=== PATIENT | female | born 1970 | race Hispanic/Latino ===

== ENCOUNTER 2018-11-18 17:10 | Emergency (ER) | payer OTHER ==
[~2018-11-18] VITALS: Ht 154.9 cm; Wt 94.3 kg
--- OUTSIDE RECORDS SUMMARY | 2018-11-18 17:14 | XMS REPORT | Continuity of Care Document ---
Author Author [employer] Address Unknown Phone Unavailable Care Team Providers Care [employer] Name Role Phone Socket Mobile Information Endocyte Unavailable Unavailable Problems Problem Status Onset Date Classification Date Reported Comments Source Other organ or system involvement in systemic lupus erythematosus Active Problem 11/07/2018 Catrina Najam Chronic insomnia Active Problem 11/07/2018 Catrina Najam Other chronic pain Active Problem 11/07/2018 Catrina Najam Systemic lupus erythematosus Active Problem 11/07/2018 Catrina Najam Pain in joint, multiple sites Active Problem 11/07/2018 Catrina Najam Chronic pain disorder Active Problem 11/07/2018 Catrina Najam High risk medication use Active Problem 11/07/2018 Catrina Najam Right carpal tunnel syndrome Active Problem 11/07/2018 Catrina Najam Pain, joint, multiple sites Active Diagnosis 09/08/2018 Catrina Najam Counseling NOS Active Diagnosis 09/08/2018 Catrina Najam Primary insomnia Active Problem 11/07/2018 Catrina Najam Lumbago due to displacement of intervertebral disc Active Problem 11/07/2018 Catrina Najam Gastric ulcer, unspecified as acute or chronic, without hemorrhage or perforation Active Problem 11/07/2018 Catrina Najam Gastritis and duodenitis Active Problem 11/07/2018 Catrina Najam Acute bilateral low back pain with sciatica, sciatica laterality unspecified Active Problem 11/07/2018 Catrina Najam Rash Active Diagnosis 09/08/2018 Catrina Najam Unspecified exophthalmos Active Diagnosis 03/12/2014 Catrina Najam Pain in or around eye Active Diagnosis 03/12/2014 Catrina Najam Pain in joint, hand Active Diagnosis 03/12/2014 Catrina Najam Effusion of hand joint Active Diagnosis 03/12/2014 Catrina Najam Chronic pain syndrome Active Diagnosis 03/12/2014 Catrina Najam myalgia and myositis Active Diagnosis 09/23/2014 Catrina Najam monitorring of highrisk meds Active Diagnosis 09/23/2014 Catrina Mcnally Pain in joint, lower leg Active Diagnosis 09/23/2014 Catrina Mcnally Proteinuria Active Diagnosis 09/23/2014 Catrina Mcnally Counseling NOS Active Diagnosis 09/23/2014 Catrina Mcnally Dysuria Active Diagnosis 03/11/2015 Catrina Mcnally Systemic lupus erythematosus Active Diagnosis 03/11/2015 Catrina Mcnally Chronic pain Active Diagnosis 03/11/2015 Catrina Mcnally Tobacco dependence Active Diagnosis 03/11/2015 Catrina Mcnally Left shoulder pain Active Diagnosis 12/08/2015 Catrina Mcnally Frequent UTI Active Diagnosis 09/08/2018 Catrina Mcnally Medications Medication Details Route Status Patient Instructions Ordering Provider Order Date Source Hydroxychloroquine Sulfate 2 tabs Orally Active 200 MG Orally Once a day [facility] 03/21/2019 Catrina Mcnally Morphine Sulfate 1 tablet as needed Orally Active 15 MG Orally every 8 hrs prn [facility] 10/22/2018 Catrina Mcnally Mycophenolate Mofetil 1 tab(s) Orally Active 500 MG Orally Twice a day [facility] 09/07/2018 Catrina Mcnally Cyclobenzaprine HCl 1 tablet as needed Orally Active 10 mg Orally bedtime [facility] 01/31/2018 Catrina Mcnally Triamcinolone Acetonide 1 application to affected area Externally Active 0.1 % Externally Twice a day [facility] 01/28/2018 Catrina Mcnally Nabumetone 1 tab(s) with food as needed Orally Active 750 MG Orally bid [facility] 01/22/2018 Catrina Mcnally Gabapentin 1 capsule Orally Active 300 MG Orally Three times a day [facility] 12/16/2017 Catrina Mcnally Nalfon 1 tab(s) with food as needed Orally Active 400 MG Orally Three times a day [facility] 11/25/2017 Catrina Mcnally Benlysta 1000mg Intravenous Active 400 MG Intravenous Once every 4 weeks [facility] 10/09/2017 Catrina Mcnally Hydroxychloroquine Sulfate 2 tabs Orally Active 200 MG Orally Once a day [facility] 09/09/2017 Catrina Mcnally Macrobid 1 capsule with food Orally Active 100 MG Orally every 12 hrs [facility] 08/05/2017 Catrina Mcnally Cyclobenzaprine HCl 1 tablet as needed Orally Active 10 mg Orally bedtime [facility] 03/13/2017 Catrina Mcnally Benlysta 10mg/kg Intravenous Active 120 MG Intravenous Once every 4 weeks [facility] 01/26/2017 Catrina Mcnally Hydroxychloroquine Sulfate 2 tabs Orally Active 200 MG Orally Once a day [facility] 12/02/2016 Catrina Mcnally Hydroxychloroquine Sulfate 2 tabs Orally Active 200 MG Orally Once a day [facility] 12/02/2016 Catrinaxena Mcnally Plaquenil 2 tabs Orally Active 200 MG Orally Once a day [facility] 11/21/2016 Catrina Mcnally Naproxen 1 tablet as needed Orally Active 500 MG Orally every 12 hrs prn with food [facility] 09/17/2016 Catrina Mcnally Tramadol HCl 1 tablet as needed Orally Active 50 MG Orally bid prn with food [facility] 08/08/2016 Catrina Mcnally Infusion Supllies One set IV Active IV Every 4 weeks [facility] 07/30/2016 Catrina Mcnally Tramadol HCl 2 tablet as needed Orally Active 50 MG Orally bid prn for pain [facility] 07/24/2016 Catrina Mcnally Cyclobenzaprine HCl 1 tablet as needed Orally Active 10 MG Orally bedtime prn [facility] 07/24/2016 Catrina Mcnally Gabapentin 1 capsule Orally Active 300 MG Orally bid [facility] 07/16/2016 Catrina Mcnally Gabapentin 1 capsule Orally Active 300 MG Orally bid [facility] 07/16/2016 Catrina Mcnally Plaquenil 2 tablets with food or milk Orally Active 200 MG Orally Once a day [facility] 12/20/2015 Catrina Mcnally Tramadol HCl 1 tab(s) as needed Orally Active 50 MG Orally Three times a day [facility] 12/20/2015 Catrina Mcnally Cyclobenzaprine HCl TAKE 1 TABLET at bedtime Orally Active 10 Orally Once a day [facility] 12/20/2015 Catrina Mcnally Tramadol HCl 1 tablet Orally Active 50 MG Orally Three times a day [facility] 10/26/2015 Catrina Mcnally Imuran as directed Orally Active 50 MG Orally one BID for lupus treatment [facility] 09/06/2015 Catrina Mcnally Plaquenil 2 tablets with food or milk Orally Active 200 MG Orally Once a day [facility] 09/06/2015 Catrina Mcnally Cipro 1 tablet Orally Active 500 MG Orally Twice a day [facility] 03/13/2015 Catrina Mcnally Savella 1 tablet Orally Active 50 MG Orally Twice a day [facility] 2015 Catrina Mcnally Hydrocodone-Acetaminophen 1 tablet as needed Orally Active 5- 325 MG Orally every 8 hrs [facility] 09/22/2014 Catrina Mcnally Plaquenil 2 tablets with food or milk Orally Active 200 MG Orally Once a day [facility] 09/16/2014 Catrina Mcnally Tramadol HCl 1 tablet as needed Orally Active 50 MG Orally every 6 hrs [facility] 09/16/2014 Catrina Mcnally Bactrim DS 1 tablet Orally Active 800-160 MG Orally twice daily [facility] 08/08/2014 Catrina Mcnally Imuran as directed Orally Active 50 MG Orally one BID for lupus treatment [facility] 08/02/2014 Catrina Mcnally Cyclobenzaprine HCl 1 tablet Orally Active 10 mg Orally bedtime [facility] 06/09/2014 Catrina Mcnally Triamcinolone Acetonide 1 application to affected area Externally Active 0.1 % Externally Twice a day [facility] 10/12/2013 Catrinaxena Mcnally Triamcinolone Acetonide 1 application to affected area Externally Active 0.1 % Externally Twice a day [facility] 10/12/2013 Catrina Mcnally HydrOXYzine HCl 1/2 tablet Orally Active 25 MG Orally at bedtime for itching [facility] 10/12/2013 Catrina Mcnally Cyclobenzaprine HCl 1 tablet as needed Orally Active 10 MG Orally bedtime prn Najam Catrina Najam Benlysta as directed Intravenous Active 120 MG Intravenous Najam Catrina [facility] Benlysta INFUSE 920MG IV AT WEEK 0, 2 AND 4 THEN EVERY 4 WEEKS. NA Active 400 MG Najam Catrina Najam Tramadol HCl 1 tablet as needed Orally Active 50 MG Orally bid prn for pain Najam Catrina Najam Benlysta as directed Intravenous Active 120 MG Intravenous Najam Catrina Najam Morphine Sulfate 1 tablet as needed Orally Active 15 MG Orally every 8 hrs prn N[facility]am Catrina Najam Cyclobenzaprine HCl 1 tablet as needed Orally Active 10 mg Orally bedtime [facility] Catrina Najam Tramadol HCl 1 tablet as needed Orally Active 50 MG Orally bid prn for pain N[facility] Catrina Mcnally Morphine Sulfate 1 tablet as needed Orally Active 15 MG Orally every 8 hrs prn [facility] Catrina Namelinda Hydroxychloroquine Sulfate 2 tabs Orally Active 200 MG Orally Once a day [facility] Catrina Namelinda Triamcinolone Acetonide 1 application to affected area Externally Active 0.1 % Externally Twice a day [facility] Catrina Namelinda Nalfon 1 tab(s) with food as needed Orally Active 400 MG Orally Three times a day [facility] Catrina Namelinda Plaquenil 1 tablet with food or milk Orally Active 200 MG Orally Once a day [facility] Catrina Namelinda Cyclobenzaprine HCl 1 tablet Orally Active 10 mg Orally bedtime [facility] Catrina Namelinda Imuran as directed Orally Active 50 MG Orally one BID for lupus treatment [place] Catrina Namelinda Cyclobenzaprine HCl TAKE 1 TABLET BY MOUTH AT BEDTIME NA Active 10 [facility] Catrina Namelinda Gabapentin 1 capsule Orally Active 300 MG Orally Three times a day U[facility] Mcnally Allergies, Adverse Reactions, Alerts Substance Category Reaction Severity Reaction type Status Date Reported Comments Source N.K.D.A. Adverse Reaction Info Not Available Adverse Reaction Active 09/07/2018 Catrina Mcnally Immunizations No Data Provided for This Section Results No Data Provided for This Section Pathology Reports No Data Provided for This Section Diagnostic Reports No Data Provided for This Section Consultation Notes No Data Provided for This Section Discharge Summaries No Data Provided for This Section History and Physicals No Data Provided for This Section Vital Signs Vital Sign Value Date Comments Source Height 65 09/17/2018 Catrina Najam Diastolic (mm Hg) 70 09/17/2018 Catrina Najam Systolic (mm Hg) 114 09/17/2018 Catrina Najam Weight 212 09/17/2018 Catrina Najam Height 65 09/07/2018 Catrina Najam Diastolic (mm Hg) 78 09/07/2018 Catrina Najam Systolic (mm Hg) 133 09/07/2018 Catrina Najam Weight 207 09/07/2018 Catrina Najam Weight 233 07/02/2018 Catrina Najam Height 65 07/02/2018 Catrina Najam Height 65 06/04/2018 Catrina Najam Diastolic (mm Hg) 84 06/04/2018 Catrina Najam Systolic (mm Hg) 127 06/04/2018 Catrina Najam Weight 215 06/04/2018 Catrina Najam Height 65 03/13/2018 Catrina Najam Diastolic (mm Hg) 84 03/13/2018 Catrina Najam Systolic (mm Hg) 131 03/13/2018 Catrina Najam Weight 219 03/13/2018 Catrina Najam Height 65 01/28/2018 Catrina Najam Diastolic (mm Hg) 72 01/28/2018 Catrina Najam Systolic (mm Hg) 108 01/28/2018 Catrina Najam Weight 217.2 01/28/2018 Catrina Najam Height 65 01/16/2018 Catrina Najam Diastolic (mm Hg) 74 01/16/2018 Catrina Najam Systolic (mm Hg) 118 01/16/2018 Catrina Najam Weight 213 01/16/2018 Catrina Najam Height 65 01/13/2018 Catrina Najam Diastolic (mm Hg) 85 01/13/2018 Catrina Najam Systolic (mm Hg) 127 01/13/2018 Catrina Najam Weight 213.6 01/13/2018 Catrina Najam Weight 216 12/19/2017 Catrina Najam Diastolic (mm Hg) 78 12/19/2017 Catrina Najam Systolic (mm Hg) 115 12/19/2017 Catrina Najam Height 65 11/25/2017 Catrina Najam Diastolic (mm Hg) 79 11/25/2017 Catrina Najam Systolic (mm Hg) 118 11/25/2017 Catrina Najam Weight 217.1 11/25/2017 Catrina Najam Height 65 11/21/2017 Catrina Najam Diastolic (mm Hg) 90 11/21/2017 Catrina Najam Systolic (mm Hg) 142 11/21/2017 Catrina Najam Weight 218 11/21/2017 Catrina Najam Height 65 10/03/2017 Catrina Najam Diastolic (mm Hg) 78 10/03/2017 Catrina Najam Systolic (mm Hg) 126 10/03/2017 Catrina Najam Weight 220 10/03/2017 Catrina Najam Height 65 09/05/2017 Catrina Najam Diastolic (mm Hg) 70 09/05/2017 Catrina Najam Systolic (mm Hg) 111 09/05/2017 Catrina Najam Weight 211 09/05/2017 Catrina Najam Height 65 08/08/2017 Catrina Najam Diastolic (mm Hg) 82 08/08/2017 Catrina Najam Systolic (mm Hg) 128 08/08/2017 Catrina Najam Weight 212 08/08/2017 Catrina Najam Height 65 08/04/2017 Catrina Najam Diastolic (mm Hg) 103 08/04/2017 Catrina Najam Systolic (mm Hg) 142 08/04/2017 Catrina Najam Weight 207.6 08/04/2017 Catrina Najam Height 65 05/29/2017 Catrina Najam Diastolic (mm Hg) 93 05/29/2017 Catrina Najam Systolic (mm Hg) 148 05/29/2017 Catrina Najam Weight 212 05/29/2017 Catrina Najam Height 65 04/25/2017 Catrina Najam Diastolic (mm Hg) 100 04/25/2017 Catrina Najam Systolic (mm Hg) 151 04/25/2017 Catrina Najam Weight 220 04/25/2017 Catrina Najam Height 65 03/28/2017 Catrina Najam Diastolic (mm Hg) 100 03/28/2017 Catrina Najam Systolic (mm Hg) 146 03/28/2017 Catrina Najam Weight 217 03/28/2017 Catrina Najam Height 65 03/13/2017 Catrina Najam Diastolic (mm Hg) 76 03/13/2017 Catrina Najam Systolic (mm Hg) 118 03/13/2017 Catrina Najam Weight 214 03/13/2017 Catrina Najam Height 65 02/20/2017 Catrina Najam Diastolic (mm Hg) 82 02/20/2017 Catrina Najam Systolic (mm Hg) 125 02/20/2017 Catrina Najam Weight 219 02/20/2017 Catrina Najam Height 65 01/17/2017 Catrina Najam Diastolic (mm Hg) 77 01/17/2017 Catrina Najam Systolic (mm Hg) 113 01/17/2017 Catrina Najam Weight 220 01/17/2017 Catrina Najam Height 65 12/19/2016 Catrina Najam Diastolic (mm Hg) 84 12/19/2016 Catrina Najam Systolic (mm Hg) 107 12/19/2016 Catrina Najam Weight 207 12/19/2016 Catrina Najam Height 65 12/02/2016 Catrina Najam Diastolic (mm Hg) 92 12/02/2016 Catrina Najam Systolic (mm Hg) 147 12/02/2016 Catrina Najam Weight 208 12/02/2016 Catrina Najam Height 65 09/17/2016 Catrina Najam Diastolic (mm Hg) 93 09/17/2016 Catrina Najam Systolic (mm Hg) 134 09/17/2016 Catrina Najam Weight 207 09/17/2016 Catrina Najam Height 65 08/29/2016 Catrina Najam Diastolic (mm Hg) 84 08/29/2016 Catrina Najam Systolic (mm Hg) 123 08/29/2016 Catrina Najam Weight 202 08/29/2016 Catrina Najam Height 65 08/09/2016 Catrina Najam Diastolic (mm Hg) 84 08/09/2016 Catrina Najam Systolic (mm Hg) 117 08/09/2016 Catrina Najam Weight 202 08/09/2016 Catrina Najam Height 65 08/01/2016 Catrina Najam Diastolic (mm Hg) 81 08/01/2016 Catrina Najam Systolic (mm Hg) 133 08/01/2016 Catrina Najam Weight 204 08/01/2016 Catrina Najam Height 65 07/24/2016 Catrina Najam Diastolic (mm Hg) 86 07/24/2016 Catrina Najam Systolic (mm Hg) 122 07/24/2016 Catrina Najam Weight 204 07/24/2016 Catrina Najam Height 65 12/07/2015 Catrina Najam Diastolic (mm Hg) 76 12/07/2015 Catrina Najam Systolic (mm Hg) 115 12/07/2015 Catrina Najam Weight 206.8 12/07/2015 Catrina Najam Height 65 10/30/2015 Catrina Najam Diastolic (mm Hg) 82 10/30/2015 Catrina Najam Systolic (mm Hg) 125 10/30/2015 Catrina Najam Weight 206.4 10/30/2015 Catrina Najam Height 65 05/18/2015 Catrina Najam Diastolic (mm Hg) 84 05/18/2015 Catrina Najam Systolic (mm Hg) 122 05/18/2015 Catrina Najam Weight 207 05/18/2015 Catrina Najam Height 65 03/09/2015 Catrina Najam Diastolic (mm Hg) 90 03/09/2015 Catrina Najam Systolic (mm Hg) 139 03/09/2015 Catrina Najam Weight 202.6 03/09/2015 Catrina Najam Height 65 02/23/2015 Catrina Najam Diastolic (mm Hg) 98 02/23/2015 Catrina Najam Systolic (mm Hg) 134 02/23/2015 Catrina Najam Weight 204 02/23/2015 Catrina Najam Height 65 09/21/2014 Catrina Najam Diastolic (mm Hg) 81 09/21/2014 Catrina Najam Systolic (mm Hg) 135 09/21/2014 Catrina Najam Weight 196.4 09/21/2014 Catrina Najam Height 65 08/02/2014 Catrina Najam Diastolic (mm Hg) 83 08/02/2014 Catrina Najam Systolic (mm Hg) 150 08/02/2014 Catrina Najam Weight 195.4 08/02/2014 Catrina Najam Height 65 04/21/2014 Catrina Najam Diastolic (mm Hg) 86 04/21/2014 Catrina Najam Systolic (mm Hg) 125 04/21/2014 Catrina Najam Weight 194 04/21/2014 Catrina Najam Height 65 2014 Catrina Najam Diastolic (mm Hg) 93 2014 Catrina Najam Systolic (mm Hg) 136 2014 Catrina Najam Weight 191 2014 Catrina Najam Height 65 02/24/2014 Catrina Najam Diastolic (mm Hg) 86 02/24/2014 Catrina Najam Systolic (mm Hg) 131 02/24/2014 Catrina Najam Weight 179 02/24/2014 Catrina Najam Height 65 01/18/2014 Catrina Najam Diastolic (mm Hg) 85 01/18/2014 Catrina Najam Systolic (mm Hg) 130 01/18/2014 Catrina Najam Weight 190 01/18/2014 Catrina Najam Encounters Location Location Details Encounter Type Encounter Number Reason For Visit Attending Provider ADM Date DC Date Status Source [facility] [id number] 01/18/2014 01/18/2014 [facility] [place] [id number] 01/18/2014 01/18/2014 [facility] [place] [id number] 01/18/2014 01/18/2014 [facility] [place] [id number] 01/18/2014 01/18/2014 [facility] [place] [id number] 01/18/2014 01/18/2014 [facility] [place] [id number] 01/18/2014 01/18/2014 [facility] [place] [id number] 01/18/2014 01/18/2014 [facility] [place] [id number] 01/18/2014 01/18/2014 [facility] [place] [id number] 01/18/2014 01/18/2014 [facility] [place] [id number] 01/18/2014 01/18/2014 [facility] [place] [id number] 01/18/2014 01/18/2014 [facility] [place] [id number] 01/18/2014 01/18/2014 Catrina Najam [facility] [id number] 01/18/2014 01/18/2014 Catrina Najam [facility] [id number] 01/18/2014 01/18/2014 Catrina Najam [facility] [id number] 01/18/2014 01/18/2014 Catrina Najam [facility] [id number] 01/18/2014 01/18/2014 Catrina Najam [facility] [id number] 01/18/2014 01/18/2014 Catrina Najam [facility] [id number] 01/18/2014 01/18/2014 Catrina Najam [facility] [id number] 01/18/2014 01/18/2014 Catrina Najam [facility] [id number] 01/18/2014 01/18/2014 Catrina Najam [facility] [id number] 01/18/2014 01/18/2014 Catrina Najam [facility] [id number] 01/18/2014 01/18/2014 Catrina Najam [facility] [id number] 01/18/2014 01/18/2014 Catrina Najam [facility] [id number] 01/18/2014 01/18/2014 [facility] [id number] 01/18/2014 01/18/2014 [facility] [place] [id number] 01/18/2014 01/18/2014 [facility] [place] [id number] 01/18/2014 01/18/2014 [facility] [place] [id number] 01/18/2014 01/18/2014 [facility] [id number] 02/24/2014 02/24/2014 [facility] [place] [id number] 02/24/2014 02/24/2014 [facility] [place] [id number] 02/24/2014 02/24/2014 [facility] [id number] 02/24/2014 02/24/2014 [facility] [place] [id number] 02/24/2014 02/24/2014 [facility] [id number] 02/24/2014 02/24/2014 [facility] [id number] 02/24/2014 02/24/2014 [facility] [place] [id number] 02/24/2014 02/24/2014 [facility] [id number] 02/24/2014 02/24/2014 [facility] [place] [id number] 02/24/2014 02/24/2014 [facility] [id number] 02/24/2014 02/24/2014 [facility] [id number] 02/24/2014 02/24/2014 [facility] [id number] 02/24/2014 02/24/2014 [facility] [place] [id number] 02/24/2014 02/24/2014 [facility] [id number] 02/24/2014 02/24/2014 [facility] [place] [id number] 02/24/2014 02/24/2014 [facility] [id number] 02/24/2014 02/24/2014 [facility] [id number] 02/24/2014 02/24/2014 [facility] [id number] 02/24/2014 02/24/2014 [facility] [id number] 02/24/2014 02/24/2014 [facility] [place] [id number] 02/24/2014 02/24/2014 [facility] [place] [id number] 02/24/2014 02/24/2014 [facility] [place] [id number] 02/24/2014 02/24/2014 [facility] [place] [id number] 02/24/2014 02/24/2014 [facility] [place] [id number] 02/24/2014 02/24/2014 [facility] [place] [id number] 02/24/2014 02/24/2014 [facility] [place] [id number] 02/24/2014 02/24/2014 [facility] Follow up [id number] 2014 2014 [facility] Follow up [id number] 2014 2014 [facility] Follow [id number] 2014 2014 [facility] Follow up [id number] 2014 2014 [facility] Follow up [id number] 2014 2014 [facility] Follow up [id number] 2014 2014 [facility] Follow up [id number] 2014 2014 [facility] Follow up [id number] 2014 2014 [facility] Follow up [id number] 2014 2014 [facility] Follow up [id number] 2014 2014 [facility] Follow up [id number] 2014 2014 [facility] Follow up [id number] 2014 2014 [facility] Follow up [id number] 2014 2014 [facility] Follow up [id number] 2014 2014 [facility] Follow up [id number] 2014 2014 [facility] Follow up [id number] 2014 2014 [facility] Follow up [id number] 2014 2014 [facility] Follow up [id number] 2014 2014 [facility] Follow up [id number] 2014 2014 [facility] Follow up [id number] 2014 2014 [facility] Follow up [id number] 2014 2014 [facility] Follow up [id number] 2014 2014 [facility] Follow up [id number] 2014 2014 [facility] Follow up [id number] 2014 2014 [facility] Follow up [id number] 2014 2014 [facility] Follow up [id number] 2014 2014 [facility] letter needed [id number] 2014 2014 [facility] letter needed [id number] 2014 2014 [facility] letter needed [id number] 2014 2014 [facility] letter needed [id number] 2014 2014 [facility] letter needed [id number] 2014 2014 [facility] letter needed [id number] 2014 2014 [facility] letter needed [id number] 2014 2014 [facility] letter needed [id number] 2014 2014 [facility] letter needed [id number] 2014 2014 [facility] letter needed [id number] 2014 2014 [facility] letter needed [id number] 2014 2014 [facility] letter needed [id number] 2014 2014 [facility] letter needed [id number] 2014 2014 [facility] letter needed [id number] 2014 2014 [facility] letter needed [id number] 2014 2014 [facility] letter needed [id number] 2014 2014 [facility] letter needed [id number] 2014 2014 [facility] letter needed [id number] 2014 2014 [facility] letter needed [id number] 2014 2014 [facility] letter needed [id number] 2014 2014 [facility] letter needed [id number] 2014 2014 [facility] letter needed [id number] 2014 2014 [facility] letter needed [id number] 2014 2014 [facility] letter needed [id number] 2014 2014 [facility] Appointment [id number] 04/12/2014 04/12/2014 [facility]ointment [id number] 04/12/2014 04/12/2014 [facility]ment [id number] 04/12/2014 04/12/2014 [facility] Appointment [id number] 04/12/2014 04/12/2014 [facility] Appointment [id number] 04/12/2014 04/12/2014 [facility] Appointment [id number] 04/12/2014 04/12/2014 [facility] Appointment [id number] 04/12/2014 04/12/2014 [facility] Appointment [id number] 04/12/2014 04/12/2014 [facility] Appointment [id number] 04/12/2014 04/12/2014 [facility] Appointment [id number] 04/12/2014 04/12/2014 [facility] Appointment [id number] 04/12/2014 04/12/2014 [facility] Appointment [id number] 04/12/2014 04/12/2014 [facility] Appointment [id number] 04/12/2014 04/12/2014 [facility] Appointment [id number] 04/12/2014 04/12/2014 [facility] Appointment [id number] 04/12/2014 04/12/2014 [facility] Appointment [id number] 04/12/2014 04/12/2014 [facility] Appointment [id number] 04/12/2014 04/12/2014 [facility] Appointment [id number] 04/12/2014 04/12/2014 [facility] Appointment [id number] 04/12/2014 04/12/2014 [facility] Appointment [id number] 04/12/2014 04/12/2014 [facility] Appointment [id number] 04/12/2014 04/12/2014 [facility] Appointment [id number] 04/12/2014 04/12/2014 [facility] Appointment [id number] 04/12/2014 04/12/2014 [facility] Appointment [id number] 04/12/2014 04/12/2014 [facility] Appointment [id number] 04/12/2014 04/12/2014 [facility] [id number] 04/21/2014 04/21/2014 [facility] [place] [id number] 04/21/2014 04/21/2014 [facility] [place] [id number] 04/21/2014 04/21/2014 [facility] [place] [id number] 04/21/2014 04/21/2014 [facility] [place] [id number] 04/21/2014 04/21/2014 [facility] [place] [id number] 04/21/2014 04/21/2014 [facility] [place] [id number] 04/21/2014 04/21/2014 [facility] [place] [id number] 04/21/2014 04/21/2014 [facility] [place] [id number] 04/21/2014 04/21/2014 [facility] [place] [id number] 04/21/2014 04/21/2014 [facility] [place] [id number] 04/21/2014 04/21/2014 [facility] [place] [id number] 04/21/2014 04/21/2014 [facility] [place] [id number] 04/21/2014 04/21/2014 [facility] [place] [id number] 04/21/2014 04/21/2014 [facility] [place] [id number] 04/21/2014 04/21/2014 [facility] [place] [id number] 04/21/2014 04/21/2014 [facility] [place] [id number] 04/21/2014 04/21/2014 [facility] [place] [id number] 04/21/2014 04/21/2014 [facility] [place] [id number] 04/21/2014 04/21/2014 [facility] [place] [id number] 04/21/2014 04/21/2014 [facility] [place] [id number] 04/21/2014 04/21/2014 [facility] [place] [id number] 04/21/2014 04/21/2014 [facility] [place] [id number] 04/21/2014 04/21/2014 [facility] [place] [id number] 04/21/2014 04/21/2014 [facility] [place] [id number] 05/19/2014 05/19/2014 [facility] [place] [id number] 05/19/2014 05/19/2014 [facility] [place] [id number] 05/19/2014 05/19/2014 [facility] [place] [id number] 05/19/2014 05/19/2014 [facility] [place] [id number] 05/19/2014 05/19/2014 [facility] [place] [id number] 05/19/2014 05/19/2014 [facility] [place] [id number] 05/19/2014 05/19/2014 [facility] [place] [id number] 05/19/2014 05/19/2014 [facility] [place] [id number] 05/19/2014 05/19/2014 [facility] [place] [id number] 05/19/2014 05/19/2014 [facility] [place] [id number] 05/19/2014 05/19/2014 [facility] [place] [id number] 05/19/2014 05/19/2014 [facility] [place] [id number] 05/19/2014 05/19/2014 [facility] [place] [id number] 05/19/2014 05/19/2014 [facility] [place] [id number] 05/19/2014 05/19/2014 [facility] [place] [id number] 05/19/2014 05/19/2014 [facility] [place] [id number] 05/19/2014 05/19/2014 [facility] [place] [id number] 05/19/2014 05/19/2014 [facility] [place] [id number] 05/19/2014 05/19/2014 [facility] [place] [id number] 05/19/2014 05/19/2014 [facility] [place] [id number] 05/19/2014 05/19/2014 [facility] [place] [id number] 05/19/2014 05/19/2014 [facility] [place] [id number] 05/19/2014 05/19/2014 [facility] [employer] [id number] 06/09/2014 06/09/2014 [facility] [id number] 06/09/2014 06/09/2014 [facility] [employer] [id number] 06/09/2014 06/09/2014 [facility] [employer] [id number] 06/09/2014 06/09/2014 [facility] [employer] [id number] 06/09/2014 06/09/2014 [facility] [id number] 06/09/2014 06/09/2014 [facility] [id number] 06/09/2014 06/09/2014 [facility] [employer] [id number] 06/09/2014 06/09/2014 [facility] [id number] 06/09/2014 06/09/2014 [facility] [id number] 06/09/2014 06/09/2014 [facility] [id number] 06/09/2014 06/09/2014 [facility] [id number] 06/09/2014 06/09/2014 [facility] [id number] 06/09/2014 06/09/2014 [facility] [id number] 06/09/2014 06/09/2014 [facility] [id number] 06/09/2014 06/09/2014 [facility] [id number] 06/09/2014 06/09/2014 [facility] [id number] 06/09/2014 06/09/2014 [facility] [id number] 06/09/2014 06/09/2014 [facility] [id number] 06/09/2014 06/09/2014 [facility] [id number] 06/09/2014 06/09/2014 [facility] [id number] 06/09/2014 06/09/2014 [facility] [id number] 06/09/2014 06/09/2014 [facility] [id number] 06/09/2014 06/09/2014 [facility] Follow up [id number] 08/02/2014 08/02/2014 [facility] Follow up [id number] 08/02/2014 08/02/2014 [facility] Follow up [id number] 08/02/2014 08/02/2014 [facility] Follow up [id number] 08/02/2014 08/02/2014 [facility] Follow up [id number] 08/02/2014 08/02/2014 [facility] Follow up [id number] 08/02/2014 08/02/2014 [facility] Follow up [id number] 08/02/2014 08/02/2014 [facility] Follow up [id number] 08/02/2014 08/02/2014 [facility] Follow up [id number] 08/02/2014 08/02/2014 [facility] Follow up [id number] 08/02/2014 08/02/2014 [facility] Follow up [id number] 08/02/2014 08/02/2014 [facility] Follow up [id number] 08/02/2014 08/02/2014 [facility] Follow up [id number] 08/02/2014 08/02/2014 [facility] Follow up [id number] 08/02/2014 08/02/2014 [facility] Follow up [id number] 08/02/2014 08/02/2014 [facility] Follow up [id number] 08/02/2014 08/02/2014 [facility] Follow up [id number] 08/02/2014 08/02/2014 [facility] Follow up [id number] 08/02/2014 08/02/2014 [facility] Follow up [id number] 08/02/2014 08/02/2014 [facility] Follow up [id number] 08/02/2014 08/02/2014 [facility] Follow up [id number] 08/02/2014 08/02/2014 [facility] Follow up [id number] 08/02/2014 08/02/2014 [facility] Follow up [id number] 08/02/2014 08/02/2014 [facility] resent imuran Rx [id number] 08/02/2014 08/02/2014 [facility] resent imuran Rx [id number] 08/02/2014 08/02/2014 [facility] resent imuran Rx [id number] 08/02/2014 08/02/2014 [facility] resent [facility]uran Rx [id number] 08/02/2014 08/02/2014 [facility] resent imuran Rx [id number] 08/02/2014 08/02/2014 [facility] resent imuran Rx [id number] 08/02/2014 08/02/2014 [facility] resent imuran Rx [id number] 08/02/2014 08/02/2014 [facility] resent imuran Rx [id number] 08/02/2014 08/02/2014 [facility] resent imuran Rx [id number] 08/02/2014 08/02/2014 [facility] resent [facility] Rx [id number] 08/02/2014 08/02/2014 [facility] resent imuran Rx [id number] 08/02/2014 08/02/2014 [facility] resent imuran Rx [id number] 08/02/2014 08/02/2014 [facility] resent imuran Rx [id number] 08/02/2014 08/02/2014 [facility] resent [facility]uran Rx [id number] 08/02/2014 08/02/2014 [facility] Rx [id number] 08/02/2014 08/02/2014 [facility] Rx [id number] 08/02/2014 08/02/2014 [facility] Rx [id number] 08/02/2014 08/02/2014 [facility] N[facility] resent [facility]uran Rx [id number] 08/02/2014 08/02/2014 [facility] resent [facility] Rx [id number] 08/02/2014 08/02/2014 [facility] resent [facility] Rx [id number] 08/02/2014 08/02/2014 [facility] resent [facility] Rx [id number] 08/02/2014 08/02/2014 [facility] resent [facility] Rx [id number] 08/02/2014 08/02/2014 [facility] resent [facility] Rx [id number] 08/02/2014 08/02/2014 [facility] review labs [id number] 08/06/2014 08/06/2014 [facility] labs [id number] 08/06/2014 08/06/2014 [facility] labs [id number] 08/06/2014 08/06/2014 [facility] labs [id number] 08/06/2014 08/06/2014 [facility] [id number] 08/06/2014 08/06/2014 [facility] labs [id number] 08/06/2014 08/06/2014 [facility] labs [id number] 08/06/2014 08/06/2014 [facility] [id number] 08/06/2014 08/06/2014 [facility] labs [id number] 08/06/2014 08/06/2014 [facility] review labs [id number] 08/06/2014 08/06/2014 [facility] [id number] 08/06/2014 08/06/2014 [facility] [facility] labs [id number] 08/06/2014 08/06/2014 [facility] review labs [id number] 08/06/2014 08/06/2014 [facility] review labs [id number] 08/06/2014 08/06/2014 [facility] review labs [id number] 08/06/2014 08/06/2014 [facility] review labs [id number] 08/06/2014 08/06/2014 [facility] review labs [id number] 08/06/2014 08/06/2014 [facility] review labs [id number] 08/06/2014 08/06/2014 [facility] review labs [id number] 08/06/2014 08/06/2014 [facility] review labs [id number] 08/06/2014 08/06/2014 [facility] review labs [id number] 08/06/2014 08/06/2014 [facility] lab results [id number] 08/08/2014 08/08/2014 [facility] lab results [id number] 08/08/2014 08/08/2014 [facility] lab results [id number] 08/08/2014 08/08/2014 [facility] lab results [id number] 08/08/2014 08/08/2014 [facility] lab results [id number] 08/08/2014 08/08/2014 [facility] lab results [id number] 08/08/2014 08/08/2014 [facility] lab results [id number] 08/08/2014 08/08/2014 [facility] lab results [id number] 08/08/2014 08/08/2014 [facility] lab results [id number] 08/08/2014 08/08/2014 [facility] lab results [id number] 08/08/2014 08/08/2014 [facility] lab results [id number] 08/08/2014 08/08/2014 [facility] lab results [id number] 08/08/2014 08/08/2014 [facility] lab results [id number] 08/08/2014 08/08/2014 [facility] lab results [id number] 08/08/2014 08/08/2014 [facility] lab results [id number] 08/08/2014 08/08/2014 [facility] lab results [id number] 08/08/2014 08/08/2014 [facility] lab results [id number] 08/08/2014 08/08/2014 [facility] lab results [id number] 08/08/2014 08/08/2014 [facility] lab results [id number] 08/08/2014 08/08/2014 [facility] lab results [id number] 08/08/2014 08/08/2014 [facility] lab results [id number] 08/08/2014 08/08/2014 [facility] Unknown [id number] 08/11/2014 08/11/2014 [facility] Unknown [id number] 08/11/2014 08/11/2014 [facility] Unknown [id number] 08/11/2014 08/11/2014 [facility] Unknown [id number] 08/11/2014 08/11/2014 [facility] Unknown [id number] 08/11/2014 08/11/2014 [facility] Unknown [id number] 08/11/2014 08/11/2014 [facility] [id number] 08/11/2014 08/11/2014 [facility] Unknown [id number] 08/11/2014 08/11/2014 [facility] [id number] 08/11/2014 08/11/2014 [facility] Unknown [id number] 08/11/2014 08/11/2014 [facility] Unknown [id number] 08/11/2014 08/11/2014 [facility] Unknown [id number] 08/11/2014 08/11/2014 [facility] Unknown [id number] 08/11/2014 08/11/2014 [facility] Unknown [id number] 08/11/2014 08/11/2014 [facility] Unknown [id number] 08/11/2014 08/11/2014 [facility] Unknown [id number] 08/11/2014 08/11/2014 [facility] Unknown [id number] 08/11/2014 08/11/2014 [facility] Unknown [id number] 08/11/2014 08/11/2014 [facility] Unknown [id number] 08/11/2014 08/11/2014 [facility] Unknown [id number] 08/11/2014 08/11/2014 [facility] Unknown [id number] 08/11/2014 08/11/2014 [facility] labs by DERIKC [id number] 08/28/2014 08/28/2014 [facility] labs by DERICK [id number] 08/28/2014 08/28/2014 [facility] labs by DERICK [id number] 08/28/2014 08/28/2014 [facility] labs by DERICK [id number] 08/28/2014 08/28/2014 [facility] labs by DERICK [id number] 08/28/2014 08/28/2014 [facility] labs by DERICK [id number] 08/28/2014 08/28/2014 [facility] labs by DERICK [id number] 08/28/2014 08/28/2014 [facility] labs by DERICK [id number] 08/28/2014 08/28/2014 [facility] labs by DERICK [id number] 08/28/2014 08/28/2014 [facility] labs by DERICK [id number] 08/28/2014 08/28/2014 [facility] labs by DERICK [id number] 08/28/2014 08/28/2014 [facility] labs by DERICK [id number] 08/28/2014 08/28/2014 [facility] labs by DERICK [id number] 08/28/2014 08/28/2014 [facility] labs by DERICK [id number] 08/28/2014 08/28/2014 [facility] labs by DERICK [id number] 08/28/2014 08/28/2014 [facility] labs by DERICK [id number] 08/28/2014 08/28/2014 [facility] labs by DERICK [id number] 08/28/2014 08/28/2014 [facility] labs by DERICK [id number] 08/28/2014 08/28/2014 [facility] labs by DERICK [id number] 08/28/2014 08/28/2014 [facility] labs by DERICK [id number] 08/28/2014 08/28/2014 [facility] Unknown [id number] 09/14/2014 09/14/2014 [facility] Unknown [id number] 09/14/2014 09/14/2014 [facility] Unknown [id number] 09/14/2014 09/14/2014 [facility] Unknown [id number] 09/14/2014 09/14/2014 [facility] Unknown [id number] 09/14/2014 09/14/2014 [facility] Unknown [id number] 09/14/2014 09/14/2014 [facility] [id number] 09/14/2014 09/14/2014 [facility] Unknown [id number] 09/14/2014 09/14/2014 [facility] Unknown [id number] 09/14/2014 09/14/2014 [facility] Unknown [id number] 09/14/2014 09/14/2014 [facility] Unknown [id number] 09/14/2014 09/14/2014 [facility] Unknown [id number] 09/14/2014 09/14/2014 [facility] [id number] 09/14/2014 09/14/2014 [facility] Unknown [id number] 09/14/2014 09/14/2014 [facility] Unknown [id number] 09/14/2014 09/14/2014 [facility] Unknown [id number] 09/14/2014 09/14/2014 [facility] Unknown [id number] 09/14/2014 09/14/2014 [facility] Unknown [id number] 09/14/2014 09/14/2014 [facility] Unknown [id number] 09/14/2014 09/14/2014 [facility] Unknown [id number] 09/14/2014 09/14/2014 [facility] Call abx for UTI [id number] 09/15/2014 09/15/2014 [facility] Call abx for UTI [id number] 09/15/2014 09/15/2014 [facility] Call abx for UTI [id number] 09/15/2014 09/15/2014 [facility] Call abx for UTI [id number] 09/15/2014 09/15/2014 [facility] Call abx for UTI [id number] 09/15/2014 09/15/2014 [facility] Call abx for UTI [id number] 09/15/2014 09/15/2014 [facility] Call abx for UTI [id number] 09/15/2014 09/15/2014 [facility] Call abx for UTI [id number] 09/15/2014 09/15/2014 [facility] Call abx for UTI [id number] 09/15/2014 09/15/2014 [facility] Call abx for UTI [id number] 09/15/2014 09/15/2014 [facility] Call abx for UTI [id number] 09/15/2014 09/15/2014 [facility] Call abx for UTI [id number] 09/15/2014 09/15/2014 [facility] Call abx for UTI [id number] 09/15/2014 09/15/2014 [facility] Call abx for UTI [id number] 09/15/2014 09/15/2014 [facility] Call abx for UTI [id number] 09/15/2014 09/15/2014 [facility] Call abx for UTI [id number] 09/15/2014 09/15/2014 [facility] Call abx for UTI [id number] 09/15/2014 09/15/2014 [facility] Call abx for UTI [id number] 09/15/2014 09/15/2014 [facility] Call abx for UTI [id number] 09/15/2014 09/15/2014 [facility] Call abx for UTI [id number] 09/15/2014 09/15/2014 [facility] Follow up [id number] 09/21/2014 09/21/2014 [facility] Follow up [id number] 09/21/2014 09/21/2014 [facility] Follow up [id number] 09/21/2014 09/21/2014 [facility] Follow up [id number] 09/21/2014 09/21/2014 [facility] Follow up [id number] 09/21/2014 09/21/2014 [facility] Follow up [id number] 09/21/2014 09/21/2014 [facility] Follow up [id number] 09/21/2014 09/21/2014 [facility] Follow up [id number] 09/21/2014 09/21/2014 [facility] Follow up [id number] 09/21/2014 09/21/2014 [facility] Follow up [id number] 09/21/2014 09/21/2014 [facility] Follow up [id number] 09/21/2014 09/21/2014 [facility] Follow up [id number] 09/21/2014 09/21/2014 [facility] Follow up [id number] 09/21/2014 09/21/2014 [facility] Follow up [id number] 09/21/2014 09/21/2014 [facility] Follow up [id number] 09/21/2014 09/21/2014 [facility] Follow up [id number] 09/21/2014 09/21/2014 [facility] Follow up [id number] 09/21/2014 09/21/2014 [facility] Follow up [id number] 09/21/2014 09/21/2014 [facility] Follow up [id number] 09/21/2014 09/21/2014 [facility] Follow up [id number] 09/21/2014 09/21/2014 [facility] symptoms [id number] 09/21/2014 09/21/2014 [facility] symptoms [id number] 09/21/2014 09/21/2014 [facility] symptoms [id number] 09/21/2014 09/21/2014 [facility] symptoms [id number] 09/21/2014 09/21/2014 [facility] symptoms [id number] 09/21/2014 09/21/2014 [facility] symptoms [id number] 09/21/2014 09/21/2014 [facility] symptoms [id number] 09/21/2014 09/21/2014 [facility] symptoms [id number] 09/21/2014 09/21/2014 [facility] symptoms [id number] 09/21/2014 09/21/2014 [facility] symptoms [id number] 09/21/2014 09/21/2014 [facility] symptoms [id number] 09/21/2014 09/21/2014 [facility] symptoms [id number] 09/21/2014 09/21/2014 [facility] symptoms [id number] 09/21/2014 09/21/2014 [facility] symptoms [id number] 09/21/2014 09/21/2014 [facility] symptoms [id number] 09/21/2014 09/21/2014 [facility] symptoms [id number] 09/21/2014 09/21/2014 [facility] symptoms [id number] 09/21/2014 09/21/2014 [facility] symptoms [id number] 09/21/2014 09/21/2014 [facility] symptoms [id number] 09/21/2014 09/21/2014 [facility] symptoms [id number] 09/21/2014 09/21/2014 [facility] [place] [id number] 09/29/2014 09/29/2014 [facility] [place] [id number] 09/29/2014 09/29/2014 [facility] [place] [id number] 09/29/2014 09/29/2014 [facility] [place] [id number] 09/29/2014 09/29/2014 [facility] [place] [id number] 09/29/2014 09/29/2014 [facility] [place] [id number] 09/29/2014 09/29/2014 [facility] [place] [id number] 09/29/2014 09/29/2014 [facility] [place] [id number] 09/29/2014 09/29/2014 [facility] [place] [id number] 09/29/2014 09/29/2014 [facility] [place] [id number] 09/29/2014 09/29/2014 [facility] [place] [id number] 09/29/2014 09/29/2014 [facility] [place] [id number] 09/29/2014 09/29/2014 [facility] [place] [id number] 09/29/2014 09/29/2014 [facility] [place] [id number] 09/29/2014 09/29/2014 [facility] [place] [id number] 09/29/2014 09/29/2014 [facility] [place] [id number] 09/29/2014 09/29/2014 [facility] [place] [id number] 09/29/2014 09/29/2014 [facility] [place] [id number] 09/29/2014 09/29/2014 [facility] [place] [id number] 09/29/2014 09/29/2014 [facility] [place] [id number] 10/27/2014 10/27/2014 [facility] [place] [id number] 10/27/2014 10/27/2014 [facility] [place] [id number] 10/27/2014 10/27/2014 [facility] [place] [id number] 10/27/2014 10/27/2014 [facility] [place] [id number] 10/27/2014 10/27/2014 [facility] [place] [id number] 10/27/2014 10/27/2014 [facility] [place] [id number] 10/27/2014 10/27/2014 [facility] [place] [id number] 10/27/2014 10/27/2014 [facility] [place] [id number] 10/27/2014 10/27/2014 [facility] [place] [id number] 10/27/2014 10/27/2014 [facility] [place] [id number] 10/27/2014 10/27/2014 [facility] [place] [id number] 10/27/2014 10/27/2014 [facility] [place] [id number] 10/27/2014 10/27/2014 [facility] [place] [id number] 10/27/2014 10/27/2014 [facility] [place] [id number] 10/27/2014 10/27/2014 [facility] [place] [id number] 10/27/2014 10/27/2014 [facility] [place] [id number] 10/27/2014 10/27/2014 [facility] [place] [id number] 10/27/2014 10/27/2014 [facility] [place] [id number] 10/27/2014 10/27/2014 [facility] increase of dose [id number] 11/08/2014 11/08/2014 [facility] increase of dose [id number] 11/08/2014 11/08/2014 [facility] increase of dose [id number] 11/08/2014 11/08/2014 [facility] increase of dose [id number] 11/08/2014 11/08/2014 [facility] increase of dose [id number] 11/08/2014 11/08/2014 [facility] increase of dose [id number] 11/08/2014 11/08/2014 [facility] increase of dose [id number] 11/08/2014 11/08/2014 [facility] increase of dose [id number] 11/08/2014 11/08/2014 [facility] increase of dose [id number] 11/08/2014 11/08/2014 [facility] increase of dose [id number] 11/08/2014 11/08/2014 [facility] increase of dose [id number] 11/08/2014 11/08/2014 [facility] increase of dose [id number] 11/08/2014 11/08/2014 [facility] increase of dose [id number] 11/08/2014 11/08/2014 [facility] increase of dose [id number] 11/08/2014 11/08/2014 [facility] increase of dose [id number] 11/08/2014 11/08/2014 [facility] increase of dose [id number]-[id number] 11/08/2014 11/08/2014 [facility] increase of dose [id number] 11/08/2014 11/08/2014 [facility] increase of dose [id number] 11/08/2014 11/08/2014 [facility] increase of dose [id number] 11/08/2014 11/08/2014 [facility] dose increase nacr [id number] 11/10/2014 11/10/2014 [facility] dose increase nacr [id number] 11/10/2014 11/10/2014 [facility] dose increase nacr [id number] 11/10/2014 11/10/2014 [facility] dose increase nacr [id number] 11/10/2014 11/10/2014 [facility] dose increase nacr [id number] 11/10/2014 11/10/2014 [facility] dose increase nacr [id number] 11/10/2014 11/10/2014 [facility] dose increase nacr [id number] 11/10/2014 11/10/2014 [facility] dose increase nacr [id number] 11/10/2014 11/10/2014 [facility] dose increase nacr [id number] 11/10/2014 11/10/2014 [facility] dose increase nacr [id number] 11/10/2014 11/10/2014 [facility] dose increase nacr [id number] 11/10/2014 11/10/2014 [facility] dose increase nacr [id number] 11/10/2014 11/10/2014 [facility] dose increase nacr [id number] 11/10/2014 11/10/2014 [facility] dose increase nacr [id number] 11/10/2014 11/10/2014 [facility] dose increase nacr [id number] 11/10/2014 11/10/2014 [facility] dose increase nacr [id number] 11/10/2014 11/10/2014 [facility] dose increase nacr [id number] 11/10/2014 11/10/2014 [facility] dose increase nacr [id number] 11/10/2014 11/10/2014 [facility] dose increase nacr [id number] 11/10/2014 11/10/2014 [facility] labs discuss by phone [id number] 11/28/2014 11/28/2014 [facility] labs discuss by phone [id number] 11/28/2014 11/28/2014 [facility] labs discuss by phone [id number] 11/28/2014 11/28/2014 [facility] labs discuss by phone [id number] 11/28/2014 11/28/2014 [facility] labs discuss by phone [id number] 11/28/2014 11/28/2014 [facility] labs discuss by phone [id number] 11/28/2014 11/28/2014 [facility] labs discuss by phone [id number] 11/28/2014 11/28/2014 [facility] labs discuss by phone [id number] 11/28/2014 11/28/2014 [facility] labs discuss by phone [id number] 11/28/2014 11/28/2014 [facility] labs discuss by phone [id number] 11/28/2014 11/28/2014 [facility] labs discuss by phone [id number] 11/28/2014 11/28/2014 [facility] labs discuss by phone [id number] 11/28/2014 11/28/2014 [facility] labs discuss by phone [id number] 11/28/2014 11/28/2014 [facility] labs discuss by phone [id number] 11/28/2014 11/28/2014 [facility] labs discuss by phone [id number] 11/28/2014 11/28/2014 [facility] labs discuss by phone [id number] 11/28/2014 11/28/2014 [facility] labs discuss by phone [id number] 11/28/2014 11/28/2014 [facility] labs discuss by phone [id number] 11/28/2014 11/28/2014 [facility] [place] [id number] 12/08/2014 12/08/2014 [facility] [place] [id number] 12/08/2014 12/08/2014 [facility] [place] [id number] 12/08/2014 12/08/2014 [facility] [place] [id number] 12/08/2014 12/08/2014 [facility] [place] [id number] 12/08/2014 12/08/2014 [facility] [place] [id number] 12/08/2014 12/08/2014 [facility] [place] [id number] 12/08/2014 12/08/2014 [facility] [place] [id number] 12/08/2014 12/08/2014 [facility] [place] [id number] 12/08/2014 12/08/2014 [facility] [place] [id number] 12/08/2014 12/08/2014 [facility] [place] [id number] 12/08/2014 12/08/2014 [facility] [place] [id number] 12/08/2014 12/08/2014 [facility] [place] [id number] 12/08/2014 12/08/2014 [facility] [place] [id number] 12/08/2014 12/08/2014 [facility] [place] [id number] 12/08/2014 12/08/2014 [facility] [place] [id number] 12/08/2014 12/08/2014 [facility] [place] [id number] 12/08/2014 12/08/2014 [facility] Reschedule Appt. [id number] 12/15/2014 12/15/2014 [facility] Reschedule Appt. [id number] 12/15/2014 12/15/2014 [facility] Reschedule Appt. [id number] 12/15/2014 12/15/2014 [facility] Reschedule Appt. [id number] 12/15/2014 12/15/2014 [facility] Reschedule Appt. [id number] 12/15/2014 12/15/2014 [facility] Reschedule Appt. [id number] 12/15/2014 12/15/2014 [facility] Reschedule Appt. [id number] 12/15/2014 12/15/2014 [facility] Reschedule Appt. [id number] 12/15/2014 12/15/2014 [facility] Reschedule Appt. [id number] 12/15/2014 12/15/2014 [facility] Reschedule Appt. [id number] 12/15/2014 12/15/2014 [facility] Reschedule Appt. [id number] 12/15/2014 12/15/2014 [facility] Reschedule Appt. [id number] 12/15/2014 12/15/2014 [facility] Reschedule Appt. [id number] 12/15/2014 12/15/2014 [facility] Reschedule Appt. [id number] 12/15/2014 12/15/2014 [facility] Reschedule Appt. [id number] 12/15/2014 12/15/2014 [facility] Reschedule Appt. [id number] 12/15/2014 12/15/2014 [facility] Reschedule Appt. [id number] 12/15/2014 12/15/2014 [facility] Pain contract [id number] 12/21/2014 12/21/2014 [facility] Pain contract [id number] 12/21/2014 12/21/2014 [facility] Pain contract [id number] 12/21/2014 12/21/2014 [facility] Pain contract [id number] 12/21/2014 12/21/2014 [facility] Pain contract [id number] 12/21/2014 12/21/2014 [facility] Pain contract [id number] 12/21/2014 12/21/2014 [facility] Pain contract [id number] 12/21/2014 12/21/2014 [facility] Pain contract [id number] 12/21/2014 12/21/2014 [facility] Pain contract [id number] 12/21/2014 12/21/2014 [facility] Pain contract [id number] 12/21/2014 12/21/2014 [facility] Pain contract [id number] 12/21/2014 12/21/2014 [facility] Pain contract [id number] 12/21/2014 12/21/2014 [facility] Pain contract [id number] 12/21/2014 12/21/2014 [facility] Pain contract [id number] 12/21/2014 12/21/2014 [facility] Pain contract [id number] 12/21/2014 12/21/2014 [facility] Pain contract [id number] 12/21/2014 12/21/2014 [facility] Pain contract [id number] 12/21/2014 12/21/2014 [facility] urine results [id number] 12/27/2014 12/27/2014 [facility] urine results [id number] 12/27/2014 12/27/2014 [facility] urine results [id number] 12/27/2014 12/27/2014 [facility] urine results [id number] 12/27/2014 12/27/2014 [facility] urine results [id number] 12/27/2014 12/27/2014 [facility] urine results [id number] 12/27/2014 12/27/2014 [facility] urine results [id number] 12/27/2014 12/27/2014 [facility] urine results [id number] 12/27/2014 12/27/2014 [facility] urine results [id number] 12/27/2014 12/27/2014 [facility] urine results [id number] 12/27/2014 12/27/2014 [facility] urine results [id number] 12/27/2014 12/27/2014 [facility] urine results [id number] 12/27/2014 12/27/2014 [facility] urine results [id number] 12/27/2014 12/27/2014 [facility] urine results [id number] 12/27/2014 12/27/2014 [facility] urine results [id number] 12/27/2014 12/27/2014 [facility] urine results [id number] 12/27/2014 12/27/2014 [facility] urine results [id number] 12/27/2014 12/27/2014 [facility] [id number] 01/20/2015 01/20/2015 [facility] [id number] 01/20/2015 01/20/2015 [facility] [place] [id number] 01/20/2015 01/20/2015 [facility] [place] [id number] 01/20/2015 01/20/2015 [facility] [place] [id number] 01/20/2015 01/20/2015 [facility] [place] [id number] 01/20/2015 01/20/2015 [facility] [place] [id number] 01/20/2015 01/20/2015 [facility] [place] [id number] 01/20/2015 01/20/2015 [facility] [place] [id number] 01/20/2015 01/20/2015 [facility] [place] [id number] 01/20/2015 01/20/2015 [facility] [place] [id number] 01/20/2015 01/20/2015 [facility] [place] [id number] 01/20/2015 01/20/2015 [facility] [place] [id number] 01/20/2015 01/20/2015 [facility] [place] [id number] 01/20/2015 01/20/2015 [facility] [place] [id number] 01/20/2015 01/20/2015 [facility] [place] [id number] 01/20/2015 01/20/2015 [facility] [id number] 01/20/2015 01/20/2015 [facility] Infusion [id number] 01/24/2015 01/24/2015 [facility] [id number] 01/24/2015 01/24/2015 [facility] [id number] 01/24/2015 01/24/2015 [facility] [id number] 01/24/2015 01/24/2015 [facility] [id number] 01/24/2015 01/24/2015 [facility] [id number] 01/24/2015 01/24/2015 [facility] [id number] 01/24/2015 01/24/2015 [facility] Infusion [id number] 01/24/2015 01/24/2015 [facility] [id number] 01/24/2015 01/24/2015 [facility] Infusion [id number] 01/24/2015 01/24/2015 [facility]fusion [id number] 01/24/2015 01/24/2015 [facility]fusion [id number] 01/24/2015 01/24/2015 [facility] Infusion [id number] 01/24/2015 01/24/2015 [facility] Infusion [id number] 01/24/2015 01/24/2015 [facility]fusion [id number] 01/24/2015 01/24/2015 [facility] Infusion [id number] 01/24/2015 01/24/2015 [facility] Infusion [id number] 01/24/2015 01/24/2015 [facility] [place] [id number] 02/08/2015 02/08/2015 [facility] [place] [id number] 02/08/2015 02/08/2015 [facility] [place] [id number] 02/08/2015 02/08/2015 [facility] [place] [id number] 02/08/2015 02/08/2015 [facility] [place] [id number] 02/08/2015 02/08/2015 [facility] [place] [id number] 02/08/2015 02/08/2015 [facility] [place] [id number] 02/08/2015 02/08/2015 [facility] [place] [id number] 02/08/2015 02/08/2015 [facility] [place] [id number] 02/08/2015 02/08/2015 [facility] [place] [id number] 02/08/2015 02/08/2015 [facility] [place] [id number] 02/08/2015 02/08/2015 [facility] [place] [id number] 02/08/2015 02/08/2015 [facility] [place] [id number] 02/08/2015 02/08/2015 [facility] [place] [id number] 02/08/2015 02/08/2015 [facility] [place] [id number] 02/08/2015 02/08/2015 [facility] due OV [id number] 02/23/2015 02/23/2015 [facility] due OV [id number] 02/23/2015 02/23/2015 [facility] due OV [id number] 02/23/2015 02/23/2015 [facility] [place] [id number] 02/23/2015 02/23/2015 [facility] due [facility] [id number] 02/23/2015 02/23/2015 [facility] [place] [id number] 02/23/2015 02/23/2015 [facility] due OV [id number] 02/23/2015 02/23/2015 [facility] due OV [id number] 02/23/2015 02/23/2015 [facility] due OV [id number] 02/23/2015 02/23/2015 [facility] due [facility] [id number] 02/23/2015 02/23/2015 [facility] due OV [id number] 02/23/2015 02/23/2015 [facility] due OV [id number] 02/23/2015 02/23/2015 [facility] [place] [id number] 02/23/2015 02/23/2015 [facility] due OV [id number] 02/23/2015 02/23/2015 [facility] [id number] 02/23/2015 02/23/2015 [facility] [id number] 02/23/2015 02/23/2015 [facility] [id number] 02/23/2015 02/23/2015 [facility] [id number] 02/23/2015 02/23/2015 [facility] [id number] 02/23/2015 02/23/2015 [facility] [id number] 02/23/2015 02/23/2015 [facility] [id number] 02/23/2015 02/23/2015 [facility] [id number] 02/23/2015 02/23/2015 [facility] [id number] 02/23/2015 02/23/2015 [facility] [id number] 02/23/2015 02/23/2015 [facility] [id number] 02/23/2015 02/23/2015 [facility] [id number] 02/23/2015 02/23/2015 [facility] [id number] 02/23/2015 02/23/2015 [facility] disability forms [id number] 03/03/2015 03/03/2015 [facility] [id number] 03/03/2015 03/03/2015 [facility] disability forms [id number] 03/03/2015 03/03/2015 [facility] disability forms [id number] 03/03/2015 03/03/2015 [facility] disability forms [id number] 03/03/2015 03/03/2015 [facility] disability forms [id number] 03/03/2015 03/03/2015 [facility] disability forms [id number] 03/03/2015 03/03/2015 [facility] disability forms [id number] 03/03/2015 03/03/2015 [facility] disability forms [id number] 03/03/2015 03/03/2015 [facility] disability forms [id number] 03/03/2015 03/03/2015 [facility] Follow up [id number] 03/09/2015 03/09/2015 [facility] Follow up [id number] 03/09/2015 03/09/2015 [facility] Follow up [id number] 03/09/2015 03/09/2015 [facility] Follow up [id number] 03/09/2015 03/09/2015 [facility] Follow up [id number] 03/09/2015 03/09/2015 [facility] Follow up [id number] 03/09/2015 03/09/2015 [facility] Follow up [id number] 03/09/2015 03/09/2015 [facility] Follow up [id number] 03/09/2015 03/09/2015 [facility] Follow up [id number] 03/09/2015 03/09/2015 [facility] Follow up [id number] 03/09/2015 03/09/2015 [facility] Follow up [id number] 03/09/2015 03/09/2015 [facility] Follow up [id number] 03/09/2015 03/09/2015 [facility] Cipro [id number] 03/13/2015 03/13/2015 [facility] Cipro [id number] 03/13/2015 03/13/2015 [facility] Cipro [id number] 03/13/2015 03/13/2015 [facility] Cipro [id number] 03/13/2015 03/13/2015 [facility] Cipro [id number] 03/13/2015 03/13/2015 [facility] Cipro [id number] 03/13/2015 03/13/2015 [facility] Cipro [id number] 03/13/2015 03/13/2015 [facility] Cipro [id number] 03/13/2015 03/13/2015 [facility] Cipro [id number] 03/13/2015 03/13/2015 [facility] Cipro [id number] 03/13/2015 03/13/2015 [facility] Cipro [id number] 03/13/2015 03/13/2015 [facility] special pharmacy [id number] 05/18/2015 05/18/2015 [facility] special pharmacy [id number] 05/18/2015 05/18/2015 [facility] special pharmacy [id number] 05/18/2015 05/18/2015 [facility] special pharmacy [id number] 05/18/2015 05/18/2015 [facility] special pharmacy [id number] 05/18/2015 05/18/2015 [facility] pharmacy [id number] 05/18/2015 05/18/2015 [facility] special pharmacy [id number] 05/18/2015 05/18/2015 [facility] pharmacy [id number] 05/18/2015 05/18/2015 [facility] pharmacy [id number] 05/18/2015 05/18/2015 [facility] R/s Infusion [id number] 05/31/2015 05/31/2015 [facility] R/s Infusion [id number] 05/31/2015 05/31/2015 [facility] R/s Infusion [id number] 05/31/2015 05/31/2015 [facility] R/s Infusion [id number] 05/31/2015 05/31/2015 [facility] R/s Infusion [id number] 05/31/2015 05/31/2015 [facility] R/s Infusion [id number] 05/31/2015 05/31/2015 [facility] R/s Infusion [id number] 05/31/2015 05/31/2015 [facility] R/s Infusion [id number] 05/31/2015 05/31/2015 [facility] Lupus inj [id number] 06/12/2015 06/12/2015 [facility] Lupus inj [id number] 06/12/2015 06/12/2015 [facility] Lupus inj [id number] 06/12/2015 06/12/2015 [facility] Lupus inj [id number] 06/12/2015 06/12/2015 [facility] Lupus inj [id number] 06/12/2015 06/12/2015 [facility] Lupus inj [id number] 06/12/2015 06/12/2015 [facility] Lupus inj [id number] 06/12/2015 06/12/2015 [facility] pain/tramadol [id number] 10/26/2015 10/26/2015 [facility] pain/tramadol [id number] 10/26/2015 10/26/2015 [facility] pain/tramadol [id number] 10/26/2015 10/26/2015 [facility] pain/tramadol [id number] 10/26/2015 10/26/2015 [facility] pain/tramadol [id number] 10/26/2015 10/26/2015 [facility] pain/tramadol [id number] 10/26/2015 10/26/2015 [facility] pain shoulder/depo shot [id number] 10/30/2015 10/30/2015 [facility] pain shoulder/depo shot [id number] 10/30/2015 10/30/2015 [facility] pain shoulder/depo shot [id number] 10/30/2015 10/30/2015 [facility] pain shoulder/depo shot [id number] 10/30/2015 10/30/2015 [facility] pain shoulder/depo shot [id number] 10/30/2015 10/30/2015 [facility] Tramadol/Flexeril/Plaquenil/Cream refill req. - awaiting signature [id number] 11/20/2015 11/20/2015 [facility] Tramadol/Flexeril/Plaquenil/Cream refill req. - awaiting signature [id number] 11/20/2015 11/20/2015 [facility] Tramadol/Flexeril/Plaquenil/Cream refill req. - awaiting signature [id number] 11/20/2015 11/20/2015 [facility] Tramadol/Flexeril/Plaquenil/Cream refill req. - awaiting signature [id number] 11/20/2015 11/20/2015 [facility] Follow up [id number] 12/07/2015 12/07/2015 [facility] Follow up [id number] 12/07/2015 12/07/2015 [facility] Follow up [id number] 12/07/2015 12/07/2015 [facility] Unknown [id number] 02/02/2016 02/02/2016 [facility] Unknown [id number] 02/02/2016 02/02/2016 [facility] benlysta [id number] 02/21/2016 02/21/2016 [facility] [id number] KRISTIN QUINTANA 10/07/2016 Active [facility] Procedures No Data Provided for This Section Assessment and Plan No Data Provided for This Section Plan of Care No Data Provided for This Section Social History Social History Date Source Social History ElementQualifiersDate Reported IV Drug abuse No. Dec 07, 2015 Smoking status: Yes. Dec 07, 2015 alcohol No. Dec 07, 2015 12/07/2015 Catrina Mcnally Family History No Data Provided for This Section Advance Directives No Data Provided for This Section Functional Status No Data Provided for This Section
--- OUTSIDE RECORDS SUMMARY | 2018-11-18 17:15 | XMS REPORT ---
Author Author Catrina Mcnally Organization [employer] Address Unknown Phone Unavailable Care Team Providers Care Document Reviewer Name Role Phone Catrina Mcnally Unavailable Allergies No Known Allergies Problems Problem Type Condition Code Onset Dates Condition Status Assessment Other organ or system involvement in systemic lupus erythematosus M32.19 Active Problem Other organ or system involvement in systemic lupus erythematosus M32.19 Active Problem Chronic insomnia F51.04 Active Problem Other chronic pain G89.29 Active Problem Systemic lupus erythematosus 710.0 Active Problem Pain in joint, multiple sites 719.49 Active Problem Chronic pain disorder G89.4 Active Problem High risk medication use Z79.899 Active Medications Medication Code System Code Instructions Start Date End Date Status Dosage Benlysta [facility] [place] [address]-32 120 MG Intravenous Once every 4 weeks Jan 26, 2017 Active 10mg/kg Infusion Supllies NDC 0 IV Every 4 weeks July 30, 2016 Jan 26, 2017 Active One set Results No Known Results Summary Purpose [employer] Submission
--- OUTSIDE RECORDS SUMMARY | 2018-11-18 17:15 | XMS REPORT ---
Author Author Catrina Mcnally [facility] e[employer] Address Unknown Phone Unavailable Care Team Providers Care Fork Truck Operator Name Role Phone Catrina Mcnally Unavailable Allergies No Known Allergies Problems Problem Type Condition Code Onset Dates Condition Status Assessment Right carpal tunnel syndrome G56.01 Active Problem Pain in joint, multiple sites 719.49 Active Assessment Other organ or system involvement in systemic lupus erythematosus M32.19 Active Problem Other chronic pain G89.29 Active Problem Other organ or system involvement in systemic lupus erythematosus M32.19 Active Problem Right carpal tunnel syndrome G56.01 Active Problem High risk medication use Z79.899 Active Problem Systemic lupus erythematosus 710.0 Active Problem Chronic insomnia F51.04 Active Problem Chronic pain disorder G89.4 Active Assessment Chronic insomnia F51.04 Active Assessment Pain, joint, multiple sites M25.50 Active Assessment High risk medication use Z79.899 Active Assessment Chronic pain disorder G89.4 Active Assessment Counseling NOS Z71.9 Active Medications Medication Code System Code Instructions Start Date End Date Status Dosage Infusion Supllies NDC 0 IV Every 4 weeks July 30, 2016 Jan 26, 2017 Active One set Cyclobenzaprine HCl [facility] [address]-35 10 MG Orally bedtime prn Active 1 tablet as needed Benlysta [facility] [address]-42 120 MG Intravenous Active as directed Benlysta [facility] 35575520703 400 MG Active RECONSTITUTE WITH STERILE WATER DIRECTED. DILUTE IN NORMAL SALINE AND INFUSE 909 MG OVER AT LEAST 1 HOUR EVERY 4 WEEKS. KEEP REFRIGERATED Triamcinolone Acetonide [facility] [address]-77 0.1 % Externally Twice a day October 12, 2013 Active 1 application to affected area Naproxen [facility] [address]-87 500 MG Orally every 12 hrs prn with food September 17, 2016 Jan 15, 2017 Active 1 tablet as needed Plaquenil [facility] [address]-15 200 MG Orally Once a day Nov 21, 2016 Active 2 tabs Gabapentin [facility] [address]-10 300 MG Orally bid July 16, 2016 Active 1 capsule Tramadol HCl [facility] [address]-11 50 MG Orally bid prn for pain July 24, 2016 Dec 16, 2016 Active 2 tablet as needed Vital Signs Date/Time: September 17, 2016 Height 65 in Blood Pressure Diastolic 93 mm Hg Blood Pressure Systolic 134 mm Hg Weight 207 lbs Results No Known Results Summary Purpose eClinicalWorks Submission
--- OUTSIDE RECORDS SUMMARY | 2018-11-18 17:15 | XMS REPORT ---
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
--- OUTSIDE RECORDS SUMMARY | 2018-11-18 17:15 | XMS REPORT ---
Author Author Catrina Mcnally Organization [employer] Address Unknown Phone Unavailable Care Team Providers Care Lacquer Machine Feeder Name Role Phone Catrina Mcnally CP Unavailable Allergies No Known Allergies Problems Problem Type Condition Code Onset Dates Condition Status Problem Other organ or system involvement in systemic lupus erythematosus M32.19 Active Problem Chronic insomnia F51.04 Active Problem Other chronic pain G89.29 Active Problem Systemic lupus erythematosus 710.0 Active Problem Pain in joint, multiple sites 719.49 Active Problem Chronic pain disorder G89.4 Active Problem High risk medication use Z79.899 Active Medications No Known Medications Results No Known Results Summary Purpose [employer] Submission
--- OUTSIDE RECORDS SUMMARY | 2018-11-18 17:15 | XMS REPORT ---
Author Author Catrina Mcnally Organization [employer] Address Unknown Phone Unavailable Care Team Providers Care Cigar Tobacco Rehandler Name Role Phone Catrina Mcnally CP Unavailable Allergies No Known Allergies Problems Problem Type Condition Code Onset Dates Condition Status Problem Systemic lupus erythematosus 710.0 Active Problem Pain in joint, multiple sites 719.49 Active Problem High risk medication use Z79.899 Active Medications No Known Medications Results No Known Results Summary Purpose [employer]ClinicalWorks Submission
--- OUTSIDE RECORDS SUMMARY | 2018-11-18 17:15 | XMS REPORT ---
Author Author Catrina Mcnally Organization [employer] Address Unknown Phone Unavailable Care Team Providers Care Energy Conservation Specialist Name Role Phone Catrina Mcnally CP Unavailable Allergies No Known Allergies Problems Problem Type Condition Code Onset Dates Condition Status Problem Pain in joint, multiple sites 719.49 Active Problem Other chronic pain G89.29 Active Problem Other organ or system involvement in systemic lupus erythematosus M32.19 Active Problem Right carpal tunnel syndrome G56.01 Active Problem High risk medication use Z79.899 Active Problem Systemic lupus erythematosus 710.0 Active Problem Chronic insomnia F51.04 Active Problem Chronic pain disorder G89.4 Active Medications No Known Medications Results No Known Results Summary Purpose [employer]ClinicalWorks Submission
--- OUTSIDE RECORDS SUMMARY | 2018-11-18 17:15 | XMS REPORT ---
Author Author Catrina Mcnally Organization [employer] Address Unknown Phone Unavailable Care Team Providers Care Retort Load Expediter Name Role Phone Catrina Mcnally CP Unavailable [...]
--- OUTSIDE RECORDS SUMMARY | 2018-11-18 17:15 | XMS REPORT ---
Author Author Catrina Mcnally Organization [employer] Address Unknown Phone Unavailable Care Team Providers Care Care Administrative Tech Name Role Phone Catrina Mcnally CP Unavailable [...] use Z79.899 Active Medications No Known Medications Vital Signs Date/Time: August 01, 2016 Height 65 in Blood Pressure Diastolic 81 mm Hg Blood Pressure Systolic 133 mm Hg Weight 204 lbs Results No Known Results Summary Purpose [employer]Works Submission
--- OUTSIDE RECORDS SUMMARY | 2018-11-18 17:15 | XMS REPORT ---
Author Author Catrina Mcnally Organization [employer] Address Unknown Phone Unavailable Care Team Providers Care Sql Developer Name Role Phone Catrina Mcnally CP Unavailable [...] No Known Medications Vital Signs Date/Time: August 09, 2016 Height 65 in Blood Pressure Diastolic 84 mm Hg Blood Pressure Systolic 117 mm Hg Weight 202 lbs Results No Known Results Summary Purpose [employer]ClinicalWorks Submission
--- OUTSIDE RECORDS SUMMARY | 2018-11-18 17:15 | XMS REPORT ---
Author Author Catrina Mcnally Organization [employer] Address Unknown Phone Unavailable Care Team Providers Care Warehouse Examiner Name Role Phone Catrina Mcnally CP Unavailable Allergies, Adverse Reactions, Alerts Substance Reaction Event Type N.K.D.A. Info Not Available Non Drug Allergy Problems Problem Type Condition Code Onset Dates Condition Status Assessment High risk medication use Z79.899 Active Assessment Other organ or system involvement in systemic lupus erythematosus M32.19 Active Assessment Counseling NOS Z71.9 Active Problem Other organ or system involvement in systemic lupus erythematosus M32.19 Active Problem Chronic insomnia F51.04 Active Problem Other chronic pain G89.29 Active Problem Systemic lupus erythematosus 710.0 Active Problem Pain in joint, multiple sites 719.49 Active Problem Chronic pain disorder G89.4 Active Problem High risk medication use Z79.899 Active Assessment Chronic pain disorder G89.4 Active Assessment Chronic insomnia F51.04 Active Assessment Pain, joint, multiple sites M25.50 Active Medications Medication Code System Code Instructions Start Date End Date Status Dosage Tramadol HCl [facility] [address]-76 50 MG Orally bid prn for pain July 24, 2016 Active 1 tablet as needed Tramadol HCl [facility] [address]-42 50 MG Orally every 6 hrs Active 1 tablet as needed Benlysta [facility] [address]-77 120 MG Intravenous Active as directed Gabapentin [facility] [address]-14 300 MG Orally bedtime July 16, 2016 Active 1 capsule Cyclobenzaprine HCl [facility] [address]-25 10 MG Orally bedtime prn July 24, 2016 Active 1 tablet as needed Triamcinolone Acetonide [facility] [address]-56 0.1 % Externally Twice a day October 12, 2013 Active 1 application to affected area Plaquenil [facility] [address]-45 200 MG Orally Once a day Active 1 tablet with food or milk Benlysta [facility] 47577488671 400 MG Active RECONSTITUTE WITH STERILE WATER DIRECTED. DILUTE IN NORMAL SALINE AND INFUSE 909 MG OVER AT LEAST 1 HOUR EVERY 4 WEEKS. KEEP REFRIGERATED Vital Signs Date/Time: July 24, 2016 Height 65 in Blood Pressure Diastolic 86 mm Hg Blood Pressure Systolic 122 mm Hg Weight 204 lbs Results No Known Results Summary Purpose eClinicalWorks Submission
--- OUTSIDE RECORDS SUMMARY | 2018-11-18 17:15 | XMS REPORT ---
Author Author Catrina Mcnally Organization [employer] Address Unknown Phone Unavailable Care Team Providers Care Hydraulic Governor Assembler Name Role Phone Catrina Mcnally CP Unavailable [...]
--- OUTSIDE RECORDS SUMMARY | 2018-11-18 17:15 | XMS REPORT ---
Author Author Catrina Mcnally Organization [employer] Address Unknown Phone Unavailable Care Team Providers Care Launch Leader Name Role Phone Catrina Mcnally CP Unavailable Allergies No Known Allergies Problems Problem Type Condition Code Onset Dates Condition Status Problem Systemic lupus erythematosus 710.0 Active Problem Pain in joint, multiple sites 719.49 Active Problem High risk medication use Z79.899 Active Medications No Known Medications Results No Known Results Summary Purpose eClinicalWorks Submission
--- OUTSIDE RECORDS SUMMARY | 2018-11-18 17:15 | XMS REPORT ---
Author Author Catrina Mcnally Organization [employer] Address Unknown Phone Unavailable Care Team Providers Care Stopper Setter Name Role Phone Catrina Mcnally CP Unavailable [...]
--- OUTSIDE RECORDS SUMMARY | 2018-11-18 17:15 | XMS REPORT ---
Author Author Catrina Mcnally Organization [employer] Address Unknown Phone Unavailable Care Team Providers Care Do All Operator Name Role Phone Catrina Mcnally CP Unavailable [...]
--- OUTSIDE RECORDS SUMMARY | 2018-11-18 17:15 | XMS REPORT ---
Author Author Catrina Mcnally Organization [employer] Address Unknown Phone Unavailable Care Team Providers Care Fixed Route Bus Operator Name Role Phone Catrina Mcnally CP [...]
--- OUTSIDE RECORDS SUMMARY | 2018-11-18 17:15 | XMS REPORT ---
Author Author Catrina Mcnally Organization [employer] Address Unknown Phone Unavailable Care Team Providers Care Social Media Community Manager Name Role Phone Catrina Mcnally CP Unavailable Allergies, Adverse Reactions, Alerts Substance Reaction Event Type N.K.D.A. Info Not Available Non Drug Allergy Problems Problem Type Condition Code Onset Dates Condition Status Assessment Counseling NOS Z71.9 Active Problem Pain in joint, multiple sites [...] Chronic pain disorder G89.4 Active Assessment Chronic pain disorder G89.4 Active Assessment Pain, joint, multiple sites M25.50 Active Assessment High risk medication use Z79.899 Active Medications Medication Code System Code Instructions Start Date End Date Status Dosage Gabapentin [facility] [address]-72 300 MG Orally bid July 16, 2016 Active 1 capsule Triamcinolone Acetonide [facility] [address]-89 0.1 % Externally Twice a day October 12, 2013 Active 1 application to affected area Infusion Supllies NDC 0 IV Every 4 weeks July 30, 2016 Jan 26, 2017 Active One set Benlysta [facility] 53782085979 400 MG Active INFUSE 920MG IV AT WEEK 0, 2 AND 4 THEN EVERY 4 WEEKS. Naproxen [facility] [address]-94 500 MG Orally every 12 hrs prn with food September 17, 2016 Jan 15, 2017 Active 1 tablet as needed Benlysta [facility] [address]-31 120 MG Intravenous Active as directed Tramadol HCl [facility] [address]-68 50 MG Orally bid prn for pain Active 1 tablet as needed Cyclobenzaprine HCl [facility] [address]-03 10 MG Orally bedtime prn Active 1 tablet as needed Hydroxychloroquine Sulfate [facility] [address]-09 200 MG Orally Once a day Dec 02, 2016 Apr 01, 2017 Active 2 tabs Vital Signs Date/Time: Dec 02, 2016 Height 65 in Blood Pressure Diastolic 92 mm Hg Blood Pressure Systolic 147 mm Hg Weight 208 lbs Results No Known Results Summary Purpose [employer]Works Submission
--- OUTSIDE RECORDS SUMMARY | 2018-11-18 17:15 | XMS REPORT ---
Author Author Catrina Mcnally Organization [employer] Address Unknown Phone Unavailable Care Team Providers Care Cream Buyer Name Role Phone Catrina Mcnally CP Unavailable [...]
--- OUTSIDE RECORDS SUMMARY | 2018-11-18 17:15 | XMS REPORT ---
Author Author Catrina Mcnally Organization [employer] Address Unknown Phone Unavailable Care Team Providers Care Rivet Flunky Name Role Phone Catrina Mcnally Unavailable Allergies No Known Allergies Problems Problem Type Condition Code Onset Dates Condition Status Problem Systemic lupus erythematosus 710.0 Active Problem Pain in joint, multiple sites 719.49 Active Problem High risk medication use Z79.899 Active Medications Medication Code System Code Instructions Start Date End Date Status Dosage Gabapentin [facility] [address]-29 300 MG Orally bedtime July 16, 2016 Active 1 capsule Results No Known Results Summary Purpose [employer]Works Submission
--- OUTSIDE RECORDS SUMMARY | 2018-11-18 17:15 | XMS REPORT ---
Author Author Catrina Mcnally Organization [employer] Address Unknown Phone Unavailable Care Team Providers Care Pillowcase Cleaner Name Role Phone Catrina Mcnally CP Unavailable [...] No Known Medications Vital Signs Date/Time: August 29, 2016 Height 65 in Blood Pressure Diastolic 84 mm Hg Blood Pressure Systolic 123 mm Hg Weight 202 lbs Results No Known Results Summary Purpose [employer] Submission
--- OUTSIDE RECORDS SUMMARY | 2018-11-18 17:15 | XMS REPORT ---
Author Author Catrina Mcnally Organization [employer] Address Unknown Phone Unavailable Care Team Providers Care Curing Finisher Name Role Phone Catrina Mcnally CP Unavailable [...]
--- OUTSIDE RECORDS SUMMARY | 2018-11-18 17:15 | XMS REPORT ---
Author Author Catrina Mcnally Organization [employer] Address Unknown Phone Unavailable Care Team Providers Care Animal Skinner Name Role Phone Catrina Mcnally CP Unavailable Allergies No Known Allergies Problems Problem Type Condition Code Onset Dates Condition Status Problem Systemic lupus erythematosus 710.0 Active Problem Pain in joint, multiple sites 719.49 Active Problem High risk medication use Z79.899 Active Medications No Known Medications Results No Known Results Summary Purpose [employer] Submission
--- OUTSIDE RECORDS SUMMARY | 2018-11-18 17:15 | XMS REPORT ---
Author Author Catrina Mcnally Organization [employer] Address Unknown Phone Unavailable Care Team Providers Care Sweatband Shaper Name Role Phone Catrina Mcnally CP Unavailable [...]
--- OUTSIDE RECORDS SUMMARY | 2018-11-18 17:15 | XMS REPORT ---
Author Author Catrina Mcnally Organization [employer] Address Unknown Phone Unavailable Care Team Providers Care Mannequin Mounter Name Role Phone Catrina Mcnally Unavailable Allergies No Known Allergies Problems Problem Type Condition Code Onset Dates Condition Status Assessment Chronic insomnia F51.04 Active Problem Other organ or system involvement in systemic lupus erythematosus M32.19 Active Problem Chronic insomnia F51.04 Active Problem Other chronic pain G89.29 Active Problem Systemic lupus erythematosus 710.0 Active Problem Pain in joint, multiple sites 719.49 Active Problem Chronic pain disorder G89.4 Active Problem High risk medication use Z79.899 Active Medications Medication Code System Code Instructions Start Date End Date Status Dosage Plaquenil [facility] [address]-88 200 MG Orally Once a day Nov 21, 2016 Active 2 tabs Cyclobenzaprine HCl [facility] [address]-95 10 MG Orally bedtime prn July 24, 2016 Nov 21, 2016 Active 1 tablet as needed Tramadol HCl [facility] [address]-96 50 MG Orally bid prn with food August 08, 2016 Active 1 tablet as needed Results No Known Results Summary Purpose [employer]Works Submission
--- OUTSIDE RECORDS SUMMARY | 2018-11-18 17:15 | XMS REPORT ---
Author Author Catrina Mcnally Organization [employer] Address Unknown Phone Unavailable Care Team Providers Care Building Guard Deputy Sheriff Name Role Phone Catrina Mcnally CP Unavailable Allergies No Known Allergies Problems Problem Type Condition Code Onset Dates Condition Status Problem Chronic insomnia F51.04 Active Problem Other chronic pain G89.29 Active Problem Chronic pain disorder G89.4 Active Problem Lumbago due to displacement of [...] M54.40 Active Problem Primary insomnia F51.01 Active Problem Pain in joint, multiple sites 719.49 Active Problem Systemic lupus erythematosus 710.0 Active Assessment Other organ or system involvement in systemic lupus erythematosus M32.19 Active Problem High risk medication use Z79.899 Active Medications Medication Code System Code Instructions Start Date End Date Status Dosage Morphine Sulfate [facility] [place] 24250507738 15 MG Orally every 8 hrs prn Oct 22, 2018 Active 1 tablet as needed Hydroxychloroquine Sulfate ND 40931789717 200 MG Orally Once a day Mar 21, 2019 Active 2 tabs Results No Known Results Summary Purpose [employer]ClinicalWorks Submission
--- OUTSIDE RECORDS SUMMARY | 2018-11-18 17:16 | XMS REPORT ---
Author Author Catrina Mcnally Organization [employer] Address Unknown Phone Unavailable Care Team Providers Care Bisque Brusher Name Role Phone Catrina Mcnally CP Unavailable Allergies No Known Allergies Problems Problem Type Condition Code Onset Dates Condition Status Problem Systemic lupus erythematosus 710.0 Active Problem Pain in joint, multiple sites 719.49 Active Problem Right carpal tunnel syndrome G56.01 Active Problem Chronic pain disorder G89.4 Active Problem Primary insomnia F51.01 Active Problem Other organ or system involvement in systemic lupus erythematosus M32.19 Active Problem High risk medication use Z79.899 Active Problem Chronic insomnia F51.04 Active Problem Other chronic pain G89.29 Active Medications Medication Code System Code Instructions Start Date End Date Status Dosage Benlysta [facility] 86147308745 400 MG Intravenous Once every 4 weeks October 09, 2017 September 04, 2018 Active 1000mg Results No Known Results Summary Purpose [employer]ClinicalWorks Submission
--- OUTSIDE RECORDS SUMMARY | 2018-11-18 17:16 | XMS REPORT ---
Author Author Catrina Mcnally Organization [employer] Address Unknown Phone Unavailable Care Team Providers Care Clock And Watch Assembler Name Role Phone Catrina Mcnally CP Unavailable Allergies No Known Allergies Problems Problem Type Condition Code Onset Dates Condition Status Assessment Other organ or system involvement in systemic lupus erythematosus M32.19 Active Problem Systemic lupus erythematosus 710.0 Active [...] Start Date End Date Status Dosage Benlysta [facility] 85212272896 120 MG Intravenous Active as directed Triamcinolone Acetonide ND 54869231658 0.1 % Externally Twice a day October 12, 2013 Active 1 application to affected area Hydroxychloroquine Sulfate ND 11043358847 200 MG Orally Once a day September 09, 2017 Active 2 tabs Cyclobenzaprine HCl ND 67490311887 10 mg Orally bedtime Mar 13, 2017 Active 1 tablet as needed Morphine Sulfate ND 50291114055 15 MG Orally every 8 hrs prn Active 1 tablet as needed Vital Signs Date/Time: Mar 28, 2017 Height 65 in Blood Pressure Diastolic 100 mm Hg Blood Pressure Systolic 146 mm Hg Weight 217 lbs Results No Known Results Summary Purpose [employer]ClinicalWorks Submission
--- OUTSIDE RECORDS SUMMARY | 2018-11-18 17:16 | XMS REPORT ---
Author Author Catrina Mcnally Organization [employer] Address Unknown Phone Unavailable Care Team Providers Care Finnish Rubber Name Role Phone Catrina Mcnally CP Unavailable [...]
--- OUTSIDE RECORDS SUMMARY | 2018-11-18 17:16 | XMS REPORT ---
Author Author Catrina Mcnally Organization [employer] Address Unknown Phone Unavailable Care Team Providers Care Plane Captain Name Role Phone Catrina Mcnally CP Unavailable [...] Start Date End Date Status Dosage Benlysta [facility] 04818175105 120 MG Intravenous Active as directed Triamcinolone Acetonide ND 64714800459 0.1 % Externally Twice a day October 12, 2013 Active 1 application to affected area Hydroxychloroquine Sulfate ND 01669643114 200 MG Orally Once a day September 09, 2017 Active 2 tabs Cyclobenzaprine HCl ND 33026618906 10 mg Orally bedtime Mar 13, 2017 Active 1 tablet as needed Morphine Sulfate ND 77076077424 15 MG Orally every 8 hrs prn Active 1 tablet as needed Vital Signs Date/Time: May 29, 2017 Height 65 in Blood Pressure Diastolic 93 mm Hg Blood Pressure Systolic 148 mm Hg Weight 212 lbs Results No Known Results Summary Purpose [employer]ClinicalWorks Submission
--- OUTSIDE RECORDS SUMMARY | 2018-11-18 17:16 | XMS REPORT ---
Author Author Catrina Mcnally Organization [employer] Address Unknown Phone Unavailable Care Team Providers Care Zoology Teacher Name Role Phone Catrina Mcnally CP Unavailable [...] Problem Other chronic pain G89.29 Active Medications No Known Medications Results No Known Results Summary Purpose [employer]ClinicalWorks Submission
--- OUTSIDE RECORDS SUMMARY | 2018-11-18 17:16 | XMS REPORT ---
Author Author Catrina Mcnally Organization [employer] Address Unknown Phone Unavailable Care Team Providers Care Partner Name Role Phone Catrina Mcnally CP Unavailable Allergies No Known Allergies Problems Problem Type Condition Code Onset Dates Condition Status Problem Pain in joint, multiple sites 719.49 Active Problem Chronic pain disorder G89.4 Active Problem Chronic insomnia F51.04 Active Problem Right carpal tunnel syndrome G56.01 Active Problem High risk medication use Z79.899 Active Problem Systemic lupus erythematosus 710.0 Active Problem Other chronic pain G89.29 Active Problem Other organ or system involvement in systemic lupus erythematosus M32.19 Active Medications No Known Medications Results No Known Results Summary Purpose [employer]ClinicalWorks Submission
--- OUTSIDE RECORDS SUMMARY | 2018-11-18 17:16 | XMS REPORT ---
Author Author Catrina Mcnally Organization [employer] Address Unknown Phone Unavailable Care Team Providers Care Underwriting Clerk Name Role Phone Uli Catrina CP Unavailable Allergies No Known Allergies Problems [...] Instructions Start Date End Date Status Dosage Triamcinolone Acetonide [facility] 04623935568 0.1 % Externally Twice a day Active 1 application to affected area Benlysta [facility] 79602555884 120 MG Intravenous Active as directed Macrobid [facility] 46955340187 100 MG Orally every 12 hrs August 05, 2017 Active 1 capsule with food Cyclobenzaprine HCl [facility] 01815239404 10 mg Orally bedtime Jan 31, 2018 Active 1 tablet as needed Hydroxychloroquine Sulfate [facility] 03591035881 200 MG Orally Once a day Active 2 tabs Morphine Sulfate [facility] 05580501051 15 MG Orally every 8 hrs prn Active 1 tablet as needed Vital Signs Date/Time: September 05, 2017 Height 65 in Blood Pressure Diastolic 70 mm Hg Blood Pressure Systolic 111 mm Hg Weight 211 lbs Results Name Result Date Reference Range Unit Abnormality Flag Quantiferon TB Gold ----QUANTIFERON-TB GOLD NEGATIVE [id number] NEGATIVE ----NIL VALUE 0.088 [id number] ----TB ANTIGEN-NIL VALUE 0.026 [id number] ----MITOGEN- NIL VALUE 8.292 [id number] Summary Purpose eClinicalWorks Submission
--- OUTSIDE RECORDS SUMMARY | 2018-11-18 17:16 | XMS REPORT ---
Author Author Catrina Mcnally Organization [employer] Address Unknown Phone Unavailable Care Team Providers Care Therapy Aide Name Role Phone Bisialfredo Catrina CP Unavailable Allergies, Adverse Reactions, Alerts Substance Reaction Event Type N.K.D.A. 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 Active Problem Gastric ulcer, unspecified as acute or chronic, without hemorrhage or perforation K25.9 Active Assessment Rash R21 Active Assessment Frequent UTI N39.0 Active Problem Gastritis and duodenitis K29.90 Active Problem Right carpal tunnel syndrome G56.01 Active Problem Other organ or system involvement in systemic lupus erythematosus M32.19 Active Problem Acute bilateral low back pain with sciatica, sciatica laterality unspecified M54.40 Active Problem Primary insomnia F51.01 Active Assessment Pain, joint, multiple sites M25.50 Active Assessment High risk medication use Z79.899 Active Assessment Gastritis and duodenitis K29.90 Active Assessment Primary insomnia F51.01 Active Problem Pain in joint, multiple sites 719.49 Active Assessment Counseling NOS Z71.9 Active Problem Systemic lupus erythematosus 710.0 Active Assessment Other organ or system involvement in systemic lupus erythematosus M32.19 Active Problem High risk medication use Z79.899 Active Medications Medication Code System Code Instructions Start Date End Date Status Dosage Hydroxychloroquine Sulfate ND 69333974202 200 MG Orally Once a day Active 2 tabs Mycophenolate Mofetil ND 46466778364 500 MG Orally Twice a day September 07, 2018 Active 1 tab(s) Nalfon ND 20940872060 400 MG Orally Three times a day Inactive 1 tab(s) with food as needed Gabapentin ND 66164482796 300 MG Orally Three times a day Active 1 capsule Benlysta [facility] 99491201606 120 MG Intravenous Active as directed Morphine Sulfate [facility] 67259697071 15 MG Orally every 8 hrs prn Active 1 tablet as needed Triamcinolone Acetonide [facility] 67390303216 0.1 % Externally Twice a day Active 1 application to affected area Cyclobenzaprine HCl [facility] 43011529262 10 mg Orally bedtime Active 1 tablet as needed Vital Signs Date/Time: September 07, 2018 Height 65 in Blood Pressure Diastolic 78 mm Hg Blood Pressure Systolic 133 mm Hg Weight 207 lbs Results No Known Results Summary Purpose eClinicalWorks Submission
--- OUTSIDE RECORDS SUMMARY | 2018-11-18 17:16 | XMS REPORT ---
Author Author Catrina Mcnally Organization [employer] Address Unknown Phone Unavailable Care Team Providers Care Museum Librarian Name Role Phone Catrina Mcnally CP Unavailable Allergies, Adverse Reactions, Alerts Substance Reaction Event Type N.K.D.A. Info Not Available Non Drug Allergy Problems Problem Type Condition Code Onset Dates Condition Status Problem Pain in joint, multiple sites 719.49 Active Problem High risk medication use Z79.899 Active Problem Systemic lupus erythematosus 710.0 Active Problem Primary insomnia F51.01 Active Problem Right carpal tunnel syndrome G56.01 Active Problem Acute bilateral low back pain with sciatica, sciatica laterality unspecified M54.40 Active Problem Other chronic pain G89.29 Active Problem Other organ or system involvement in systemic lupus erythematosus M32.19 Active Problem Chronic pain disorder G89.4 Active Problem Chronic insomnia F51.04 Active Assessment Acute bilateral low back pain with sciatica, sciatica laterality unspecified M54.40 Active Assessment Pain, joint, multiple sites M25.50 Active Assessment High risk medication use Z79.899 Active Assessment Rash R21 Active Assessment Counseling NOS Z71.9 Active Assessment Primary insomnia F51.01 Active Assessment Other organ or system involvement in systemic lupus erythematosus M32.19 Active Medications Medication Code System Code Instructions Start Date End Date Status Dosage Cyclobenzaprine HCl [facility] 12015274993 10 MG Orally bedtime prn Active 1 tablet as needed Macrobid [facility] 05445701976 100 MG Orally every 12 hrs August 05, 2017 Active 1 capsule with food Benlysta [facility] 88312718222 120 MG Intravenous Active as directed Triamcinolone Acetonide [facility] 35556907039 0.1 % Externally Twice a day Active 1 application to affected area Benlysta [facility] 73977364862 400 MG Intravenous Once every 4 weeks October 09, 2017 September 04, 2018 Active 1000mg Cyclobenzaprine HCl [facility] 09669933546 10 mg Orally bedtime Active 1 tablet as needed Nalfon [facility] 95400640305 400 MG Orally Three times a day Nov 25, 2017 Active 1 tab(s) with food as needed Cyclobenzaprine HCl [facility] 53153911537 10 mg Orally bedtime Active 1 tablet as needed Hydroxychloroquine Sulfate [facility] 14217635890 200 MG Orally Once a day Active 2 tabs Morphine Sulfate [facility] 24057541162 15 MG Orally every 8 hrs prn Active 1 tablet as needed Vital Signs Date/Time: Nov 25, 2017 Height 65 in Blood Pressure Diastolic 79 mm Hg Blood Pressure Systolic 118 mm Hg Weight 217.1 lbs Results No Known Results Summary Purpose eClinicalWorks Submission
--- OUTSIDE RECORDS SUMMARY | 2018-11-18 17:16 | XMS REPORT ---
Author Author Catrina Mcnally Organization [employer] Address Unknown Phone Unavailable Care Team Providers Care Crucible Furnace Tender Name Role Phone Catrina Mcnally CP Unavailable [...] Date End Date Status Dosage Cyclobenzaprine HCl ND 70590196851 10 MG Orally bedtime prn Active 1 tablet as needed Benlysta [facility] 33010478626 120 MG Active INFUSE 920MG IV AT WEEK 0, 2, AND 4 THEN EVERY 4 WEEKS Hydroxychloroquine Sulfate ND 56107781086 200 MG Orally Once a day Dec 02, 2016 Apr 01, 2017 Active 2 tabs Infusion Supllies NDC 0 IV Every 4 weeks July 30, 2016 Jan 26, 2017 Active One set Triamcinolone Acetonide ND 13146166276 0.1 % Externally Twice a day October 12, 2013 Active 1 application to affected area Gabapentin ND 84957888466 300 MG Orally bid July 16, 2016 Active 1 capsule Benlysta ND 18326860108 400 MG Active INFUSE 920MG IV AT WEEK 0, 2 AND 4 THEN EVERY 4 WEEKS. Tramadol HCl ND 35813610950 50 MG Orally bid prn for pain Active 1 tablet as needed Benlysta ND 04965052985 120 MG Intravenous Active as directed Vital Signs Date/Time: Jan 17, 2017 Height 65 in Blood Pressure Diastolic 77 mm Hg Blood Pressure Systolic 113 mm Hg Weight 220 lbs Results No Known Results Summary Purpose eClinicalWorks Submission
--- OUTSIDE RECORDS SUMMARY | 2018-11-18 17:16 | XMS REPORT ---
Author Author Catrina Mcnally Organization [employer] Address Unknown Phone Unavailable Care Team Providers Care Production Truck Driver Name Role Phone Catrina Mcnally CP Unavailable [...] Date End Date Status Dosage Hydroxychloroquine Sulfate [facility] 23339116013 200 MG Orally Once a day Active 2 tabs Morphine Sulfate ND 42710912671 15 MG Orally every 8 hrs prn Active 1 tablet as needed Triamcinolone Acetonide ND 89417876160 0.1 % Externally Twice a day Active 1 application to affected area Macrobid [facility] 13662032368 100 MG Orally every 12 hrs August 05, 2017 Active 1 capsule with food Cyclobenzaprine HCl ND 74691181079 10 mg Orally bedtime Jan 31, 2018 Active 1 tablet as needed Benlysta [facility] 13448988217 120 MG Intravenous Active as directed Vital Signs Date/Time: August 08, 2017 Height 65 in Blood Pressure Diastolic 82 mm Hg Blood Pressure Systolic 128 mm Hg Weight 212 lbs Results No Known Results Summary Purpose eClinicalWorks Submission
--- OUTSIDE RECORDS SUMMARY | 2018-11-18 17:16 | XMS REPORT ---
Author Author Catrina Mcnally Organization [employer] Address Unknown Phone Unavailable Care Team Providers Care Physics Professor Name Role Phone Catrina Mcnally CP Unavailable [...] Active Problem Other chronic pain G89.29 Active Assessment Primary insomnia F51.01 Active Assessment Pain, joint, multiple sites M25.50 Active Assessment High risk medication use Z79.899 Active Assessment Counseling NOS Z71.9 Active Medications Medication Code System Code Instructions Start Date End Date Status Dosage Cyclobenzaprine HCl ND 66230086309 10 mg Orally bedtime Jan 31, 2018 Active 1 tablet as needed Triamcinolone Acetonide ND 07746100548 0.1 % Externally Twice a day October 12, 2013 Active 1 application to affected area Benlysta [facility] 96743209471 120 MG Intravenous Active as directed Hydroxychloroquine Sulfate ND 32514374788 200 MG Orally Once a day Active 2 tabs Morphine Sulfate ND 68914107048 15 MG Orally every 8 hrs prn Active 1 tablet as needed Vital Signs Date/Time: August 04, 2017 Height 65 in Blood Pressure Diastolic 103 mm Hg Blood Pressure Systolic 142 mm Hg Weight 207.6 lbs Results No Known Results Summary Purpose eClinicalWorks Submission
--- OUTSIDE RECORDS SUMMARY | 2018-11-18 17:16 | XMS REPORT ---
Author Author Catrina Mcnally Organization [employer] Address Unknown Phone Unavailable Care Team Providers Care Tug Boat Engineer Name Role Phone Catrina Mcnally CP Unavailable [...]
--- OUTSIDE RECORDS SUMMARY | 2018-11-18 17:16 | XMS REPORT ---
Author Author Catrina Mcnally Organization [employer] Address Unknown Phone Unavailable Care Team Providers Care Electrotype Servicer Name Role Phone Bisialfredo Catrina CP Unavailable Allergies No Known Allergies [...] Date End Date Status Dosage Triamcinolone Acetonide [facility] 15246978213 0.1 % Externally Twice a day Jan 28, 2018 Active 1 application to affected area Gabapentin ND 75827819332 300 MG Orally Three times a day Dec 16, 2017 Active 1 capsule Benlysta [facility] 16192443553 120 MG Intravenous Active as directed Cyclobenzaprine HCl ND 53355927014 10 mg Orally bedtime Active 1 tablet as needed Morphine Sulfate ND 32100514256 15 MG Orally every 8 hrs prn Active 1 tablet as needed Hydroxychloroquine Sulfate ND 24957138228 200 MG Orally Once a day Active 2 tabs Vital Signs Date/Time: July 02, 2018 Weight 233 lbs Height 65 in Results Name Result Date Reference Range Unit Abnormality Flag URINALYSIS, ROUTINE ----WBC, Urine 5-10 [id number] 0-4 PER HPF A ----Crystals Urine NONE [id number] NONE N ----Leukocyte Esterase SMALL 63973479 NEGATIVE A ----Protein, Urine NEGATIVE 86038802 NEGATIVE N ----Crystal Amt. Urine NONE 03624046 NONE PER HPF N ----Glucose, Urine NEGATIVE 45471444 NEGATIVE N ----Bacteria, Urine MANY 96076207 NONE-FEW A ----Ketone, Urine NEGATIVE 15669236 NEGATIVE N ----Cast, Granular, Ur NONE SEEN 44075887 0-1 PER LPF N ----Urobilinogen Urine 0.2 23823511 0.2-1.0 mg/dL ----Epithelial Cells, Ur MODERATE 73229390 NONE-FEW A ----Bilirubin, Urine NEGATIVE 09663719 NEGATIVE N ----Color YELLOW [id number] YELLOW, STRAW, JASON N ----Cast, Hyaline, Urine 0-4 66589640 0-4 PER LPF N ----Blood, Urine NEGATIVE 85524018 NEGATIVE N ----Character CLOUDY [id number] CLEAR A ----Cast, RBC, Urine NONE SEEN [id number] 0-1 PER LPF N ----Specific [place] Ur 1.019 81123931 1.003-1.030 ----Nitrites Urine POSITIVE 42199172 NEGATIVE A ----pH Urine 5.5 48751546 5.0-8.0 ----RBC, Urine NONE SEEN 11790320 NONE SEEN PER HPF N ANTI-DOUBLE STRANDED DNA ----ANTI-dsDNA 443.5 28615335 <27.0 IU/mL H CBC w/DIFF, PLATELET CT. ----PLATELET COUNT 180 72064523 140-425 x10(3)/uL ----IMMATURE GRANULOCYTES 0.0 13585627 0.0-1.0 % ----MPV 12.5 23432616 8.6-12.1 fL H ----POLYS 65.6 74839640 37.1-78.1 % ----RDW 14.1 27266422 12.0-15.5 % ----MCHC 32.8 15489298 31.0-34.7 gm/dL ----MCH 28.4 64827017 25.2-32.6 pg ----MCV 86.5 09708696 78.0-98.0 fL ----MONOS 6.8 68312116 3.0-11.9 % ----LYMPHS 24.1 19411953 13.7-50.9 % ----BASOS 0.2 20720398 0.0-1.0 % ----EOS 3.3 97851239 0.0-5.0 % ----WBC 4.28 76448312 4.00-10.10 x10(3)/uL ----RBC 3.94 48730341 3.58-5.19 x10(6)/uL ----HGB 11.2 58291575 11.0-15.5 gm/dL ----HCT 34.1 31599075 31.5-44.8 % ESR (SED-RATE) ----ESR (SED-RATE) 81 84251708 <31 mm/hr H COMPREHENSIVE METABOLIC ----Potassium 3.8 91510284 3.5-5.5 mmol/L ----Sodium 142 66880455 135-147 mmol/L ----A/G Ratio 1.3 86382881 1.1-2.9 ----Globulin 3.0 30613141 1.7-3.7 g/dL ----BUN 11 33247098 6-20 mg/dL ----CO2 25 39815658 22-29 mmol/L ----Chloride 102 54464649 96-108 mmol/L ----e-GFR, 117 27012034 >or=60 mL/min ----Calcium 9.4 07432164 8.6-10.4 mg/dL ----Bilirubin, Total 0.4 98705348 <1.2 mg/dL ----Alk Phos 79 20279687 40-156 U/L ----Albumin 4.0 76116054 3.5-5.2 g/dL ----Total Protein 7.0 76940991 5.9-8.4 g/dL ----Creatinine 0.71 75680511 0.49-1.02 mg/dL ----e-GFR 101 65883568 >or=60 mL/min ----Glucose 195 84402312 70-99 mg/dL H ----AST 40 20180702 <32 U/L H ----ALT 38 20180702 <33 U/L H PROTEIN/CREATININE RATIO ----CREAT.URN.TIMED/RAND 110.9 [id number] Not Estab. mg/dL ----Protein,Urn.Timed/[place] 16 20180702 4-14 mg/dL H ----PROTEIN/CREAT. RATIO 0.14 20180702 <0.20 mg/mgcreat COMPLEMENT (C3), SERUM ----COMPLEMENT C3 124 [id number] 90-180 mg/dL COMPLEMENT (C4), SERUM ----COMPLEMENT C4 15 [id number] 10-40 mg/dL Summary Purpose eClinicalWorks Submission
--- OUTSIDE RECORDS SUMMARY | 2018-11-18 17:16 | XMS REPORT ---
Author Author Catrina Mcnally Organization [employer] Address Unknown Phone Unavailable Care Team Providers Care Master Control Technician Name Role Phone Uli Catrina CP Unavailable [...] Start Date End Date Status Dosage Benlysta [facility][NOTE 3] 14815692566 120 MG Intravenous Active as directed Triamcinolone Acetonide ND 32385949444 0.1 % Externally Twice a day Active 1 application to affected area Cyclobenzaprine HCl ND 64801525823 10 mg Orally bedtime Active 1 tablet as needed Hydroxychloroquine Sulfate ND 95961735850 200 MG Orally Once a day Active 2 tabs Mycophenolate Mofetil ND 15483428152 500 MG Orally Twice a day September 07, 2018 Active 1 tab(s) Gabapentin ND 77154099708 300 MG Orally Three times a day Active 1 capsule Morphine Sulfate [facility][NOTE 3] 71795986330 15 MG Orally every 8 hrs prn Active 1 tablet as needed Vital Signs Date/Time: September 17, 2018 Height 65 in Blood Pressure Diastolic 70 mm Hg Blood Pressure Systolic 114 mm Hg Weight 212 lbs Results Name Result Date Reference Range Unit Abnormality Flag HEPATITIS B SURFACE ANTIGEN ----HEP. B SURF. Ag Non-Reactive [id number] Non-Reactive QFT- TB GOLD PLUS ----MITOGEN- NIL VALUE 7.30 22402467 IU/ml ----TB2 ANTIGEN-NIL VALUE 0.00 63518513 IU/ml ----QUANTIFERON-TB GOLD PLUS NEGATIVE [id number] NEGATIVE ----TB1 ANTIGEN-NIL VALUE 0.00 17270692 IU/ml ----NIL VALUE 0.01 73883577 IU/mL HEP C AB W/RFX RT PCR HEPATITIS B SURFACE ANTIBODY ----HEP. B SURF. Ab. Non-Reactive [id number] Non-Reactive Summary Purpose eClinicalWorks Submission
--- OUTSIDE RECORDS SUMMARY | 2018-11-18 17:16 | XMS REPORT ---
Author Author Catrina Mcnally Organization [employer] Address Unknown Phone Unavailable Care Team Providers Care Corduroy Brusher Operator Name Role Phone Catrina Mcnally CP [...] Date End Date Status Dosage Cyclobenzaprine HCl [facility] 03863805090 10 mg Orally bedtime Active 1 tablet as needed Morphine Sulfate ND 07918525922 15 MG Orally every 8 hrs prn Active 1 tablet as needed Benlysta [facility] 02556087228 120 MG Intravenous Active as directed Cyclobenzaprine HCl ND 40530874723 10 MG Orally bedtime prn Active 1 tablet as needed Triamcinolone Acetonide ND 50145888434 0.1 % Externally Twice a day Active 1 application to affected area Macrobid [facility] 44620690341 100 MG Orally every 12 hrs August 05, 2017 Active 1 capsule with food Hydroxychloroquine Sulfate ND 56505948443 200 MG Orally Once a day Active 2 tabs Vital Signs Date/Time: October 03, 2017 Height 65 in Blood Pressure Diastolic 78 mm Hg Blood Pressure Systolic 126 mm Hg Weight 220 lbs Results No Known Results Summary Purpose eClinicalWorks Submission
--- OUTSIDE RECORDS SUMMARY | 2018-11-18 17:16 | XMS REPORT ---
Author Author Catrina Mcnally Organization [employer] Address Unknown Phone Unavailable Care Team Providers Care Corporate Receptionist Name Role Phone Catrina Mcnally CP Unavailable [...]
--- OUTSIDE RECORDS SUMMARY | 2018-11-18 17:16 | XMS REPORT ---
Author Author Catrina Mcnally Organization [employer] Address Unknown Phone Unavailable Care Team Providers Care Aircraft Refueler Name Role Phone Catrina Mcnally CP Unavailable [...] Instructions Start Date End Date Status Dosage Macrobid [facility] 63502568848 100 MG Orally every 12 hrs August 05, 2017 Active 1 capsule with food Results No Known Results Summary Purpose eClinicalWorks Submission
--- OUTSIDE RECORDS SUMMARY | 2018-11-18 17:16 | XMS REPORT ---
Author Author Catrina Mcnally Organization [employer] Address Unknown Phone Unavailable Care Team Providers Care Specimen Transporter Name Role Phone Catrina Mcnally CP Unavailable [...] Date End Date Status Dosage Morphine Sulfate ND 09594132523 15 MG Orally every 8 hrs prn Active 1 tablet as needed Hydroxychloroquine Sulfate ND 21369157572 200 MG Orally Once a day September 09, 2017 Active 2 tabs Benlysta ND 03990635219 120 MG Intravenous Active as directed Triamcinolone Acetonide ND 53860424795 0.1 % Externally Twice a day October 12, 2013 Active 1 application to affected area Cyclobenzaprine HCl ND 78008625901 10 mg Orally bedtime Mar 13, 2017 Active 1 tablet as needed Vital Signs Date/Time: Apr 25, 2017 Height 65 in Blood Pressure Diastolic 100 mm Hg Blood Pressure Systolic 151 mm Hg Weight 220 lbs Results No Known Results Summary Purpose eClinicalWorks Submission
--- OUTSIDE RECORDS SUMMARY | 2018-11-18 17:16 | XMS REPORT ---
Author Author Catrina Mcnally Organization [employer] Address Unknown Phone Unavailable Care Team Providers Care Bottle House Pumper Name Role Phone Catrina Mcnally CP Unavailable [...]
--- OUTSIDE RECORDS SUMMARY | 2018-11-18 17:16 | XMS REPORT ---
Author Author Catrina Mcnally Organization [employer] Address Unknown Phone Unavailable Care Team Providers Care Grinder Set Up Operator Surface Name Role Phone Catrina Mcnally CP Unavailable [...] disorder G89.4 Active Medications No Known Medications Vital Signs Date/Time: Dec 19, 2016 Height 65 in Blood Pressure Diastolic 84 mm Hg Blood Pressure Systolic 107 mm Hg Weight 207 lbs Results No Known Results Summary Purpose eClinicalWorks Submission
--- OUTSIDE RECORDS SUMMARY | 2018-11-18 17:16 | XMS REPORT ---
Author Author Catrina Mcnally Organization [employer] Address Unknown Phone Unavailable Care Team Providers Care Carbonizer Tester Name Role Phone Catrina Mcnally CP Unavailable [...] Date End Date Status Dosage Cyclobenzaprine HCl [facility] 00260540494 10 mg Orally bedtime Mar 13, 2017 Active 1 tablet as needed Gabapentin ND 88965420707 300 MG Orally bid July 16, 2016 Active 1 capsule Triamcinolone Acetonide [facility] 73078943712 0.1 % Externally Twice a day October 12, 2013 Active 1 application to affected area Benlysta [facility] 47799777942 120 MG Intravenous Active as directed Morphine Sulfate [facility] [address]-37 15 MG Orally every 8 hrs prn Active 1 tablet as needed Tramadol HCl ND 09560185986 50 MG Orally bid prn for pain Active 1 tablet as needed Cyclobenzaprine HCl ND 48545186015 10 MG Orally bedtime prn Active 1 tablet as needed Hydroxychloroquine Sulfate ND 05413197861 200 MG Orally Once a day September 09, 2017 Active 2 tabs Vital Signs Date/Time: Mar 13, 2017 Height 65 in Blood Pressure Diastolic 76 mm Hg Blood Pressure Systolic 118 mm Hg Weight 214 lbs Results No Known Results Summary Purpose eClinicalWorks Submission
--- OUTSIDE RECORDS SUMMARY | 2018-11-18 17:16 | XMS REPORT ---
Author Author Catrina Mcnally Organization [employer] Address Unknown Phone Unavailable Care Team Providers Care Tents Assembler Name Role Phone Catrina Mcnally CP [...]
--- OUTSIDE RECORDS SUMMARY | 2018-11-18 17:16 | XMS REPORT ---
Author Author Catrina Mcnally Organization [employer] Address Unknown Phone Unavailable Care Team Providers Care Medical Cost Consultant Name Role Phone Catrina Mcnally CP Unavailable [...]
--- OUTSIDE RECORDS SUMMARY | 2018-11-18 17:16 | XMS REPORT ---
Author Author Catrina Mcnally Organization [employer] Address Unknown Phone Unavailable Care Team Providers Care Loss Prevention Guard Name Role Phone Catrina Mcnally CP Unavailable [...]
--- OUTSIDE RECORDS SUMMARY | 2018-11-18 17:16 | XMS REPORT ---
Author Author Catrina Mcnally [facility] eClinicalWorks Address Unknown Phone Unavailable Care Team Providers Care Rv Service Technician Name Role Phone Catrina Mcnally Unavailable Allergies [...] End Date Status Dosage Cyclobenzaprine HCl [facility] 33930206682 10 MG Orally bedtime prn Active 1 tablet as needed Benlysta ND 67382875633 120 MG Intravenous Active as directed Gabapentin ND 75079550525 300 MG Orally bid July 16, 2016 Active 1 capsule Benlysta [facility] 69530916344 120 MG Active INFUSE 920MG IV AT WEEK 0, 2, AND 4 THEN EVERY 4 WEEKS Benlysta ND 80419446492 120 MG Intravenous Active as directed Tramadol HCl ND 27751826721 50 MG Orally bid prn for pain Active 1 tablet as needed Benlysta [facility] 69378883145 400 MG Active INFUSE 920MG IV AT WEEK 0, 2 AND 4 THEN EVERY 4 WEEKS. Hydroxychloroquine Sulfate ND 95316992146 200 MG Orally Once a day Dec 02, 2016 Apr 01, 2017 Active 2 tabs Benlysta ND 49422779628 120 MG Active INFUSE 920MG IV AT WEEK 0, 2, AND 4 THEN EVERY 4 WEEKS Triamcinolone Acetonide ND 55582496425 0.1 % Externally Twice a day October 12, 2013 Active 1 application to affected area Vital Signs Date/Time: Feb 20, 2017 Height 65 in Blood Pressure Diastolic 82 mm Hg Blood Pressure Systolic 125 mm Hg Weight 219 lbs Results No Known Results Summary Purpose eClinicalWorks Submission
--- OUTSIDE RECORDS SUMMARY | 2018-11-18 17:16 | XMS REPORT ---
Author Author Catrina Mcnally Organization [employer] Address Unknown Phone Unavailable Care Team Providers Care Flight Radio Operator Name Role Phone Catrina Mcnally CP [...]
--- OUTSIDE RECORDS SUMMARY | 2018-11-18 17:17 | XMS REPORT ---
Author Author Catrina Mcnally Organization [employer] Address Unknown Phone Unavailable Care Team Providers Care Pilot Submersible Name Role Phone Catrina Mcnally CP Unavailable Encounters Encounter Location Date [facility] Jan 18, 2014 [facility] Feb 24, 2014 Problems Problem Type Condition ICD-9 Code Onset Dates Condition Status Problem Pain in joint, multiple sites 719.49 Active Assessment Systemic lupus erythematosus 710.0 Active Problem Systemic lupus erythematosus 710.0 Active Social History Social History Element Qualifiers Date Reported IV Drug abuse No. Nov 25, 2013 Smoking status: Yes. Nov 25, 2013 alcohol No. Nov 25, 2013 Vital Signs Date/Time: Feb 24, 2014 Height 65 in Blood Pressure Diastolic 86 mm Hg Blood Pressure Systolic 131 mm Hg Weight 179 lbs Summary Purpose eClinicalWorks Submission
--- OUTSIDE RECORDS SUMMARY | 2018-11-18 17:17 | XMS REPORT ---
Author Author Catrina Mcnally Organization [employer] Address Unknown Phone Unavailable Care Team Providers Care Gis Engineer Name Role Phone Lesleymelinda Catrina CP Unavailable Allergies No Known Allergies [...] Start Date End Date Status Dosage Benlysta [facility] 96258918831 120 MG Intravenous Active as directed Hydroxychloroquine Sulfate ND 71609955862 200 MG Orally Once a day Active 2 tabs Triamcinolone Acetonide ND 79745216923 0.1 % Externally Twice a day Jan 28, 2018 Active 1 application to affected area Gabapentin ND 94622594496 300 MG Orally Three times a day Dec 16, 2017 Active 1 capsule Morphine Sulfate ND 11719598753 15 MG Orally every 8 hrs prn Active 1 tablet as needed Cyclobenzaprine HCl ND 93334767441 10 mg Orally bedtime Active 1 tablet as needed Vital Signs Date/Time: Mar 13, 2018 Height 65 in Blood Pressure Diastolic 84 mm Hg Blood Pressure Systolic 131 mm Hg Weight 219 lbs Results No Known Results Summary Purpose eClinicalWorks Submission
--- OUTSIDE RECORDS SUMMARY | 2018-11-18 17:17 | XMS REPORT ---
Author Author Catrina Mcnally Organization [employer] Address Unknown Phone Unavailable Care Team Providers Care Crown Buffer Name Role Phone Catrina Mcnally CP Unavailable [...] G89.4 Active Problem Chronic insomnia F51.04 Active Medications Medication Code System Code Instructions Start Date End Date Status Dosage Gabapentin [facility] 86745449094 300 MG Orally bedtime Dec 16, 2017 Active 1 capsule Results No Known Results Summary Purpose eClinicalWorks Submission
--- OUTSIDE RECORDS SUMMARY | 2018-11-18 17:17 | XMS REPORT ---
Author Padmini Barkley Organization e[employer] Address Unknown Phone Unavailable Care Team Providers Care Data Capture Specialist Name Role Phone Padmini Wilson CP Unavailable Allergies, Adverse Reactions, Alerts Substance Reaction Event Type N.K.D.A. 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 Active Assessment Pain in or around eye 379.91 Active Problem Pain in joint, multiple sites 719.49 Active Assessment Systemic lupus erythematosus 710.0 Active Problem Systemic lupus erythematosus 710.0 Active Assessment Pain in joint, hand 719.44 Active Assessment Effusion of hand joint 719.04 Active Assessment Pain in joint, multiple sites 719.49 Active Assessment Chronic pain syndrome 338.4 Active Medications Medication Code System Code Instructions Start Date End Date Status Dosage Benlysta [facility] [address]-39 120 MG Intravenous Active as directed Hy[facility]OXYzine [facility] [address]-96 25 MG Orally at bedtime for itching October 12, 2013 Active 1/2 tablet Plaquenil [facility] [address]-37 200 MG Orally Once a day Active 2 tablets with food or milk Tramadol HCl [facility] [address]-44 50 MG Orally every 6 hrs Active 1 tablet as needed Triamcinolone Acetonide [facility] [address]-48 0.1 % Externally Twice a day October 12, 2013 Active 1 application to affected area Social History Social History Element Qualifiers Date Reported IV Drug abuse No. Mar 11, 2014 Smoking status: Yes. Mar 11, 2014 alcohol No. Mar 11, 2014 Vital Signs Date/Time: 2014 Height 65 in Blood Pressure Diastolic 93 mm Hg Blood Pressure Systolic 136 mm Hg Weight 191 lbs Summary Purpose eClinicalWorks Submission
--- OUTSIDE RECORDS SUMMARY | 2018-11-18 17:17 | XMS REPORT ---
Author Author Catrina Mcnally [facility] eClinicalWorks Address Unknown Phone Unavailable Care Team Providers Care Pit Clerk Name Role Phone Catrina Mcnally CP Unavailable Allergies, Adverse Reactions, Alerts Substance Reaction Event Type N.K.D.A. Info Not Available Non Drug Allergy Encounters Encounter Location Date Follow up [facility] August 02, 2014 [facility] Feb 23, 2015 due [facility] Feb 23, 2015 [facility] Feb 08, 2015 symptoms [facility] September 21, 2014 Follow up [facility] September 21, 2014 Follow up [facility] Mar 09, 2015 Unknown [facility] September 14, 2014 Call abx for UTI [facility] September 15, 2014 Unknown [facility] August 11, 2014 labs by [place] [facility] August 28, 2014 PA review labs [facility] August 06, 2014 lab results [facility] August 08, 2014 [facility] September 29, 2014 Appointment [facility] Apr 12, 2014 letter needed [facility] 2014 [facility] Apr 21, 2014 [facility] May 19, 2014 [facility] Jan 18, 2014 [facility] Feb 24, 2014 Follow up [facility] 2014 increase of dose [facility] Nov 08, 2014 [facility] Oct 27, 2014 Sleeping Aid [facility] June 09, 2014 resent imuran Rx [facility] August 02, 2014 Pain contract [facility] Dec 21, 2014 urine results [facility] Dec 26, 2014 [facility] Jan 20, 2015 Infusion [facility] Jan 24, 2015 dose increase nacr [facility] Nov 10, 2014 labs discuss by phone [facility] Nov 28, 2014 [facility] Dec 08, 2014 Reschedule Appt. [facility] Dec 15, 2014 Problems Problem Type Condition ICD-9 Code Onset Dates Condition Status Assessment Dysuria R30.0 Active Problem Pain in joint, multiple sites 719.49 Active Assessment Systemic lupus erythematosus M32.9 Active Problem Systemic lupus erythematosus 710.0 Active Assessment Chronic pain G89.29 Active Assessment High risk medication use Z79.899 Active Assessment Tobacco dependence F17.200 Active Assessment Counseling NOS Z71.9 Active Medications Medication Code System Code Instructions Start Date End Date Status Dosage Savella [facility] [address]-45 50 MG Orally Twice a day 2015 June 08, 2015 Active 1 tablet Imuran [facility] [address]-83 50 MG Orally one BID for lupus treatment September 06, 2015 Active as directed Triamcinolone Acetonide [facility] [address]-12 0.1 % Externally Twice a day October 12, 2013 Active 1 application to affected area Plaquenil [facility] [address]-53 200 MG Orally Once a day September 06, 2015 Active 2 tablets with food or milk Hydrocodone-Acetaminophen [facility] [address]-65 5-325 MG Orally every 8 hrs September 22, 2014 Apr 09, 2015 Active 1 tablet as needed Benlysta [facility] [address]-21 120 MG Intravenous Active as directed HydrOXYzine HCl [facility] [address]-08 25 MG Orally at bedtime for itching October 12, 2013 Active 1/2 tablet Cyclobenzaprine HCl [facility] [address]-11 10 mg Orally bedtime Active 1 tablet Social History Social History Element Qualifiers Date Reported IV Drug abuse No. Mar 09, 2015 Smoking status: Yes. Mar 09, 2015 alcohol No. Mar 09, 2015 Vital Signs Date/Time: Mar 09, 2015 Height 65 in Blood Pressure Diastolic 90 mm Hg Blood Pressure Systolic 139 mm Hg Weight 202.6 lbs Summary Purpose eClinicalWorks Submission
--- OUTSIDE RECORDS SUMMARY | 2018-11-18 17:17 | XMS REPORT ---
Author Author Catrina Mcnally [facility] eClinicalWorks Address Unknown Phone Unavailable Care Team Providers Care Criminal Justice Department Chair Name Role Phone Catrina Mcnally CP Unavailable Allergies, Adverse Reactions, Alerts Substance Reaction Event Type N.K.D.A. Info Not Available Non Drug Allergy Encounters Encounter Location Date Appointment [facility] Apr 12, 2014 letter needed [facility] Apr 21, 2014 [facility] May 19, 2014 [facility] Jan 18, 2014 [facility] Feb 24, 2014 Follow up Rheumatology Clinic 2014 Follow up [facility]umatology Clinic August 02, 2014 Sleeping Aid [facility] June 09, 2014 resent imuran Rx Rheumat[facility] Clinic August 02, 2014 Problems Problem Type Condition ICD-9 Code Onset Dates Condition Status Assessment myalgia and myositis 729.1 Active Problem Pain in joint, multiple sites 719.49 Active Assessment Systemic lupus erythematosus 710.0 Active Problem Systemic lupus erythematosus 710.0 Active Assessment monitorring of OneBreath meds V58.69 Active Assessment Pain in joint, lower leg 719.46 Active Assessment Proteinuria 791.0 Active Assessment Counseling NOS V65.40 Active Medications Medication Code System Code Instructions Start Date End Date Status Dosage Triamcinolone Acetonide [facility] [address]-91 0.1 % Externally Twice a day October 12, 2013 Active 1 application to affected area [facility] [address]-21 50 MG Orally one BID for lupus treatment August 02, 2014 October 01, 2014 Active as directed Cyclobenzaprine HCl [facility] [address]-50 10 mg Orally bedtime June 09, 2014 October 07, 2014 Active [address] [facility] [address]-88 120 MG Intravenous Active as directed Plaquenil [facility] [address]-06 200 MG Orally Once a day September 16, 2014 Active 2 tablets with food or milk Hy[facility]OXYzine HCl [facility] [address]-00 25 MG Orally at bedtime for itching October 12, 2013 Active 1/2 tablet Tramadol HCl [facility] [address]-23 50 MG Orally every 6 hrs September 16, 2014 Active 1 tablet as needed Social History Social History Element Qualifiers Date Reported IV Drug abuse No. August 02, 2014 Smoking status: Yes. August 02, 2014 alcohol No. August 02, 2014 Vital Signs Date/Time: August 02, 2014 Height 65 in Blood Pressure Diastolic 83 mm Hg Blood Pressure Systolic 150 mm Hg Weight 195.4 lbs Results ANTI-DOUBLE STRANDED DNA ANTI-dsDNA(-See Below IU/mL) 241 CBC w/DIFF, PLATELET CT. IMMATURE GRANULOCYTES(-0.0-1.6 %) 0.0 MCV(-80.0-100.0 fL) 88.4 HCT(-34.5-46.5 %) 36.7 BASOS(-0.0-2.0 %) 0.2 MCHC(-29.0-35.0 gm/dL) 32.7 EOS(-0.0-8.0 %) 1.9 MCH(-25.0-34.1 pg) 28.9 MONOS(-0.0-13.0 %) 7.2 WBC(-3.40-11.80 x10(3)/uL) 4.69 MPV(-8.2-11.9 fL) 11.8 HGB(-11.5-15.6 gm/dL) 12.0 PLATELET COUNT(-144-400 x10(3)/uL) 186 RBC(-3.60-5.50 x10(6)/uL) 4.15 LYMPHS(-12.0-48.0 %) 20.5 RDW(-10.9-16.9 %) 14.3 POLYS(-36.0-78.0 %) 70.2 URINALYSIS, ROUTINE Epithelial Cells, Ur(-FEW ) FEW Cast, Hyaline, Urine(-0-4 PERLPF) 0-4 Bacteria, Urine(-FEW ) MANY Cast, Granular, Urin(-0-1 PERLPF) NONE SEEN Nitrites Urine(-NEGATIVE ) POSITIVE Leukocyte Esterase(-NEGATIVE ) NEGATIVE Blood, Urine(-NEGATIVE ) MODERATE Crystal Amt. Urine(-NONE ) NONE Bilirubin, Urine(-NEGATIVE ) NEGATIVE Urobilinogen Urine(-0.2 - 1.0 Units) 0.2 Ketone, Urine(-NEGATIVE ) NEGATIVE WBC, Urine(-0-4 PERHPF) 0-4 Crystals Urine(-NONE ) NONE Cast, RBC, Urine(-0-1 PERLPF) NONE SEEN RBC, Urine(-NONE SEEN PERHPF) 2-5 Color(-YELLOW, STRAW, JASON ) RED Character(-CLEAR ) TURBID Specific [place] URN(-1.003 - 1.030 ) 1.027 pH Urine(-5.0 - 8.0 ) 5.5 Protein, Urine(-NEGATIVE ) NEGATIVE Glucose, Urine(-NEGATIVE ) NEGATIVE URIC ACID, SERUM Uric Acid(-2.5-7.9 mg/dL) 3.5 CPK (CK), TOTAL CK(-26-192 U/L) 30 ESR (SED-RATE) ESR (SED-RATE)(-<26 mm/hr) 39 PROTEIN/CREATININE RATIO CREAT.URN.TIMED/RAND(-Not Estab. mg/dL) 255.8 PROTEIN,URN.TIMED/RAND(-4-14 mg/dL) 14 PROTEIN/CREAT. RATIO(-Not Estab. ) 0.05 COMPREHENSIVE METABOLIC CO2(-22-29 mmol/L) 26 Chloride(-96-108 mmol/L) 101 Potassium(-3.3-5.3 mmol/L) 4.1 Sodium(-133-145 mmol/L) 139 A/G Ratio(-1.1-2.9 ) 1.4 Globulin(-1.7-3.7 g/dL) 3.0 Albumin(-3.5-5.2 g/dL) 4.1 Total Protein(-5.9-8.4 g/dL) 7.1 Glucose(-70-99 mg/dL) 106 Bilirubin, Total(-<1.2 mg/dL) 0.3 Alk Phos(-40-156 U/L) 81 AST(-<32 U/L) 18 ALT(-<33 U/L) 16 Creatinine(-0.60-1.10 mg/dL) 0.76 e-GFR(->60 mL/min) 83 e-GFR, (->60 mL/min) 100 Calcium(-8.6-10.4 mg/dL) 9.4 BUN(-6-20 mg/dL) 14 CRP (C-REACTIVE PROTEIN), SERUM CRP(-<0.5 mg/dL) 1.2 Summary Purpose eClinicalWorks Submission
--- OUTSIDE RECORDS SUMMARY | 2018-11-18 17:17 | XMS REPORT ---
Author Author Catrina Mcnally Organization eClinicalWorks Address Unknown Phone Unavailable Care Team Providers Care Millwright Name Role Phone Catrina Mcnally CP Unavailable [...]
--- OUTSIDE RECORDS SUMMARY | 2018-11-18 17:17 | XMS REPORT ---
Author Author Catrina Mcnally Organization eClinicalWorks Address Unknown Phone Unavailable Care Team Providers Care Wire Fence Erector Name Role Phone Catrina Mcnally Unavailable Encounters Encounter Location Date Appointment Rheumatology Clinic Apr 12, 2014 letter needed [facility]ology [facility] 2014 [facility] Apr 21, 2014 [facility] Jan 18, 2014 [...] No. Mar 11, 2014 Vital Signs Date/Time: Apr 21, 2014 Height 65 in Blood Pressure Diastolic 86 mm Hg Blood Pressure Systolic 125 mm Hg Weight 194 lbs Summary Purpose eClinicalWorks Submission
--- OUTSIDE RECORDS SUMMARY | 2018-11-18 17:17 | XMS REPORT ---
Author Author Catrina Mcnally Organization eClinicalWorks Address Unknown Phone Unavailable Care Team Providers Care Apron Operator Name Role Phone Catrina Mcnally Unavailable Encounters Encounter Location Date Follow up Rheumatology Clinic August 02, 2014 symptoms Rheumatology Clinic September 21, 2014 Follow up Rheumatology Clinic September 21, 2014 Unknown Rheumatology Clinic September 14, 2014 Call [...] Qualifiers Date Reported IV Drug abuse No. Dec 21, 2014 Smoking status: Yes. Dec 21, 2014 alcohol No. Dec 21, 2014 Summary Purpose eClinicalWorks Submission
--- OUTSIDE RECORDS SUMMARY | 2018-11-18 17:17 | XMS REPORT ---
Author Author Padmini Wilson [facility] eClinicalWorks Address Unknown Phone Unavailable Care Team Providers Care Family Counselor Name Role Phone Padmini Wilson Unavailable Allergies, Adverse Reactions, Alerts Substance Reaction [...] imuran Rx Rheumatology Clinic August 02, 2014 symptoms Rheumatology Clinic September 21, 2014 Follow up Rheumatology Clinic September 21, 2014 Unknown [facility] September 14, 2014 Call abx for UTI Rheumatology Clinic September 15, 2014 Unknown [facility] August 11, 2014 labs by PA [facility] August 28, 2014 [place] review labs [facility] August 06, 2014 lab results [facility] August 08, 2014 Problems Problem Type Condition ICD-9 Code Onset Dates Condition Status Assessment myalgia and myositis 729.1 Active Problem Pain in joint, multiple sites 719.49 Active Assessment Systemic lupus erythematosus 710.0 Active Problem Systemic lupus erythematosus 710.0 Active Assessment monitorring of Mozaico med V58.69 Active Assessment Pain in joint, lower leg 719.46 Active Assessment Proteinuria 791.0 Active Assessment Counseling NOS V65.40 Active Medications Medication Code System Code Instructions Start Date End Date Status Dosage [facility] [address]-65 10 mg Orally bedtime Active 1 tablet Triamcinolone Acetonide [facility] [address]-77 0.1 % Externally Twice a day October 12, 2013 Active 1 application to affected area HydrOXYzine HCl [facility] [address]-15 25 MG Orally at bedtime for itching October 12, 2013 Active 1/2 tablet [facility] [address]-89 120 MG Intravenous Active as directed Imuran [facility] [address]-64 50 MG Orally one BID for lupus treatment Active as directed Bactrim DS [facility] [address]-68 800-160 MG Orally twice daily August 08, 2014 October 07, 2014 Active 1 tablet Imuran [facility] [address]-82 50 MG Orally one BID for lupus treatment August 02, 2014 October 01, 2014 Active as directed Tramadol HCl [facility] [address]-00 50 MG Orally as needed Active Unknown Hydrocodone-Acetaminophen [facility] [address]-27 5-325 MG Orally every 8 hrs September 22, 2014 October 07, 2014 Active 1 tablet as needed Social History Social History Element Qualifiers Date Reported IV Drug abuse No. September 21, 2014 Smoking status: Yes. September 21, 2014 alcohol No. September 21, 2014 Vital Signs Date/Time: September 21, 2014 Height 65 in Blood Pressure Diastolic 81 mm Hg Blood Pressure Systolic 135 mm Hg Weight 196.4 lbs Summary Purpose eClinicalWorks Submission
--- OUTSIDE RECORDS SUMMARY | 2018-11-18 17:17 | XMS REPORT ---
Author Author Catrina Mcnally Organization eClinicalWorks Address Unknown Phone Unavailable Care Team Providers Care Green Meat Packer Name Role Phone Catrina Mcnally CP Unavailable Encounters Encounter Location Date Appointment Rheumatology Clinic Apr 12, 2014 letter needed [facility]ology [facility] 2014 [place] Apr 21, 2014 [facility] May 19, 2014 [facility] Jan 18, 2014 [place] Feb 24, 2014 Follow up Rheumatology Clinic 2014 Follow up [facility] Clinic August 02, 2014 increase of dose [facility] Nov 08, 2014 [place] [facility] Oct 27, 2014 [facility] June 09, 2014 resent imuran Rx [facility] August 02, 2014 symptoms Rheumatology Clinic September 21, 2014 Follow up [facility]umatology Clinic September 21, 2014 Unknown [facility] September 14, 2014 Call abx for UTI [facility] September 15, 2014 dose increase nacr [facility] Nov 10, 2014 Unknown [facility] August 11, 2014 labs discuss by phone [facility] Nov 28, 2014 labs by [place] [facility] August 28, 2014 [place] review labs [facility] August 06, 2014 lab results [facility] August 08, 2014 [place] September 29, 2014 Problems Problem Type Condition ICD-9 Code Onset Dates Condition Status Problem Pain in joint, multiple sites 719.49 Active Problem Systemic lupus erythematosus 710.0 Active Social History Social History Element Qualifiers Date Reported IV Drug abuse No. Nov 10, 2014 Smoking status: Yes. Nov 10, 2014 alcohol No. Nov 10, 2014 Summary Purpose eClinicalWorks Submission
--- OUTSIDE RECORDS SUMMARY | 2018-11-18 17:17 | XMS REPORT ---
Author Author Catrina Mcnally Organization eClinicalWorks Address Unknown Phone Unavailable Care Team Providers Care Classroom Teacher Name Role Phone Catrina Mcnally CP [...] imuran Rx [facility] August 02, 2014 Unknown [facility] August 11, 2014 [place] review labs [facility] August 06, 2014 lab results [facility] August 08, 2014 Problems Problem Type Condition ICD-9 Code Onset Dates Condition Status Problem Pain in joint, multiple sites 719.49 Active Problem Systemic lupus erythematosus 710.0 Active Medications Medication Code System Code Instructions Start Date End Date Status Dosage Bactrim DS [facility] [address]-90 800-160 MG Orally twice daily August 08, 2014 October 07, 2014 Active 1 tablet Social History Social History Element Qualifiers Date Reported IV Drug abuse No. August 02, 2014 Smoking status: Yes. August 02, 2014 alcohol No. August 02, 2014 Summary Purpose eClinicalWorks Submission
--- OUTSIDE RECORDS SUMMARY | 2018-11-18 17:17 | XMS REPORT ---
Author Author Catrina Mcnally Organization eClinicalWorks Address Unknown Phone Unavailable Care Team Providers Care Drill Press Set Up Operator Name Role Phone Catrina Mcnally Unavailable Encounters Encounter Location Date Follow up Rheumatology Clinic August 02, 2014 [place] [facility] Feb 08, 2015 symptoms [...]
--- OUTSIDE RECORDS SUMMARY | 2018-11-18 17:17 | XMS REPORT ---
Author Author Catrina Mcnally Organization eClinicalWorks Address Unknown Phone Unavailable Care Team Providers Care Bilingual Medical Assistant Name Role Phone Catrina Mcnally Unavailable Encounters [...]
--- OUTSIDE RECORDS SUMMARY | 2018-11-18 17:17 | XMS REPORT ---
Author Author Catrina Mcnally [facility] eClinicalWorks Address Unknown Phone Unavailable Care Team Providers Care Returned Case Inspector Name Role Phone Catrina Mcnally Unavailable Encounters [...] 21, 2014 alcohol No. Dec 21, 2014 Vital Signs Date/Time: Feb 23, 2015 Height 65 in Blood Pressure Diastolic 98 mm Hg Blood Pressure Systolic 134 mm Hg Weight 204 lbs Summary Purpose eClinicalWorks Submission
--- OUTSIDE RECORDS SUMMARY | 2018-11-18 17:17 | XMS REPORT ---
Author Author Catrina Mcnally Organization eClinicalWorks Address Unknown Phone Unavailable Care Team Providers Care Ingredient Scaler Name Role Phone Bisialfredo Catrina CP Unavailable [...] Start Date End Date Status Dosage Benlysta [facility] 51931408958 120 MG Intravenous Active as directed Gabapentin ND 92032833282 300 MG Orally bedtime Dec 16, 2017 Active 1 capsule Hydroxychloroquine Sulfate ND 70799738422 200 MG Orally Once a day Active 2 tabs Nalfon [facility] 37828528533 400 MG Orally Three times a day Active 1 tab(s) with food as needed Morphine Sulfate ND 12230481281 15 MG Orally every 8 hrs prn Active 1 tablet as needed Cyclobenzaprine HCl ND 14552059468 10 mg Orally bedtime Active 1 tablet as needed Vital Signs Date/Time: Jan 16, 2018 Height 65 in Blood Pressure Diastolic 74 mm Hg Blood Pressure Systolic 118 mm Hg Weight 213 lbs Results No Known Results Summary Purpose eClinicalWorks Submission
--- OUTSIDE RECORDS SUMMARY | 2018-11-18 17:17 | XMS REPORT ---
Author Author Catrina Mcnally Organization eClinicalWorks Address Unknown Phone Unavailable Care Team Providers Care Quality Assurance Supervisor Final Name Role Phone Catrina Mcnally CP Unavailable [...] 21, 2014 alcohol No. September 21, 2014 Summary Purpose eClinicalWorks Submission
--- OUTSIDE RECORDS SUMMARY | 2018-11-18 17:17 | XMS REPORT ---
Author Author Catrina Mcnally Organization eClinicalWorks Address Unknown Phone Unavailable Care Team Providers Care Hardboard Coating Machine Operator Name Role Phone Bisialfredo Catrina CP Unavailable [...] Start Date End Date Status Dosage Macrobid [facility] 84004134130 100 MG Orally every 12 hrs August 05, 2017 Active 1 capsule with food Hydroxychloroquine Sulfate ND 84819146745 200 MG Orally Once a day Active 2 tabs Gabapentin ND 19838704730 300 MG Orally bedtime Dec 16, 2017 Active 1 capsule Cyclobenzaprine HCl ND 65058062781 10 mg Orally bedtime Active 1 tablet as needed Nalfon [facility] 31600362723 400 MG Orally Three times a day Active 1 tab(s) with food as needed Nalfon [facility] 93951052715 400 MG Orally Three times a day Nov 25, 2017 Active 1 tab(s) with food as needed Cyclobenzaprine HCl [facility] 96659297410 10 MG Orally bedtime prn Active 1 tablet as needed Benlysta [facility] 68100163753 120 MG Intravenous Active as directed Morphine Sulfate [facility] 50055325703 15 MG Orally every 8 hrs prn Active 1 tablet as needed Vital Signs Date/Time: Jan 13, 2018 Height 65 in Blood Pressure Diastolic 85 mm Hg Blood Pressure Systolic 127 mm Hg Weight 213.6 lbs Results No Known Results Summary Purpose eClinicalWorks Submission
--- OUTSIDE RECORDS SUMMARY | 2018-11-18 17:17 | XMS REPORT ---
Author Author Catrina Mcnally Organization eClinicalWorks Address Unknown Phone Unavailable Care Team Providers Care Barber Tool Sharpener Name Role Phone Catrina Mcnally Unavailable Encounters [...] Instructions Start Date End Date Status D[facility] [address]-93 50 MG Orally one BID for lupus treatment August 02, 2014 October 01, 2014 Active as directed Social History Social History Element Qualifiers Date Reported IV Drug abuse No. August 02, 2014 Smoking status: Yes. August 02, 2014 alcohol No. August 02, 2014 Summary Purpose eClinicalWorks Submission
--- OUTSIDE RECORDS SUMMARY | 2018-11-18 17:17 | XMS REPORT ---
Author Author Catrina Mcnally Organization eClinicalWorks Address Unknown Phone Unavailable Care Team Providers Care Gaming Dealer Name Role Phone Catrina Mcnally Unavailable Encounters Encounter Location Date Appointment Rheumatology Clinic Apr 12, 2014 [facility] Jan 18, 2014 [place] [facility] Feb 24, 2014 Follow up Rheumatology Clinic 2014 Social History Social History Element Qualifiers Date Reported IV Drug abuse No. Mar 11, 2014 Smoking status: Yes. Mar 11, 2014 alcohol No. Mar 11, 2014 Summary Purpose eClinicalWorks Submission
--- OUTSIDE RECORDS SUMMARY | 2018-11-18 17:17 | XMS REPORT ---
Author Author Catrina Mcnally Organization eClinicalWorks Address Unknown Phone Unavailable Care Team Providers Care Traffic Lieutenant Name Role Phone Catrina Mcnally Unavailable Encounters Encounter Location Date Follow up Rheumatology Clinic August 02, 2014 due [place] [facility] Clinic Feb 23, 2015 [...]
--- OUTSIDE RECORDS SUMMARY | 2018-11-18 17:17 | XMS REPORT ---
Author Author Catrina Mcnally Organization eClinicalWorks Address Unknown Phone Unavailable Care Team Providers Care Clerk Guide Name Role Phone Catrina Mcnally CP Unavailable Encounters Encounter Location Date [facility] Clinic Jan 18, 2014 Problems Problem Type Condition ICD-9 Code Onset Dates Condition Status Problem Pain in joint, multiple sites 719.49 Active Assessment Systemic lupus erythematosus 710.0 Active Problem Systemic lupus erythematosus 710.0 Active Social History Social History Element Qualifiers Date Reported IV Drug abuse No. Nov 25, 2013 Smoking status: Yes. Nov 25, 2013 alcohol No. Nov 25, 2013 Vital Signs Date/Time: Jan 18, 2014 Height 65 in Blood Pressure Diastolic 85 mm Hg Blood Pressure Systolic 130 mm Hg Weight 190 lbs Summary Purpose eClinicalWorks Submission
--- OUTSIDE RECORDS SUMMARY | 2018-11-18 17:17 | XMS REPORT ---
Author Author Catrina Mcnally Organization eClinicalWorks Address Unknown Phone Unavailable Care Team Providers Care Heel Caser Name Role Phone Catrina Mcnally CP Unavailable [...] Instructions Start Date End Date Status Dosage Nabumetone [facility] 48433766178 750 MG Orally bid Jan 22, 2018 Apr 22, 2018 Active 1 tab(s) with food as needed Results No Known Results Summary Purpose eClinicalWorks Submission
--- OUTSIDE RECORDS SUMMARY | 2018-11-18 17:17 | XMS REPORT ---
Author Author Catrina Mcnally Organization eClinicalWorks Address Unknown Phone Unavailable Care Team Providers Care Senior Environmental Engineer Name Role Phone Lesleymelinda Catrina CP [...] Date End Date Status Dosage Triamcinolone Acetonide [facility] 24872272586 0.1 % Externally Twice a day Jan 28, 2018 Active 1 application to affected area Gabapentin ND 75848447777 300 MG Orally Three times a day Dec 16, 2017 Active 1 capsule Benlysta [facility] 31683173126 120 MG Intravenous Active as directed Hydroxychloroquine Sulfate ND 46771990700 200 MG Orally Once a day Active 2 tabs Morphine Sulfate ND 62452945536 15 MG Orally every 8 hrs prn Active 1 tablet as needed Cyclobenzaprine HCl ND 74732289513 10 mg Orally bedtime Active 1 tablet as needed Vital Signs Date/Time: June 04, 2018 Height 65 in Blood Pressure Diastolic 84 mm Hg Blood Pressure Systolic 127 mm Hg Weight 215 lbs Results No Known Results Summary Purpose eClinicalWorks Submission
--- OUTSIDE RECORDS SUMMARY | 2018-11-18 17:17 | XMS REPORT ---
Author Author Catrina Mcnally Organization eClinicalWorks Address Unknown Phone Unavailable Care Team Providers Care Artillery Maintenance Supervisor Name Role Phone Catrina Mcnally CP Unavailable Allergies No Known Allergies Problems Problem Type Condition Code Onset Dates Condition Status Problem Pain in joint, multiple sites 719.49 Active Problem High risk medication use Z79.899 Active Problem Systemic lupus erythematosus 710.0 Active Assessment Other organ or system involvement in systemic lupus erythematosus M32.19 Active Problem Primary insomnia F51.01 Active Problem Right carpal tunnel syndrome G56.01 Active Problem Acute bilateral low back pain with sciatica, sciatica laterality unspecified M54.40 Active Problem Other chronic pain G89.29 Active Problem Other organ or system involvement in systemic lupus erythematosus M32.19 Active Problem Chronic pain disorder G89.4 Active Problem Chronic insomnia F51.04 Active Medications No Known Medications Vital Signs Date/Time: Dec 19, 2017 Weight 216 lbs Blood Pressure Diastolic 78 mm Hg Blood Pressure Systolic 115 mm Hg Results No Known Results Summary Purpose eClinicalWorks Submission
--- OUTSIDE RECORDS SUMMARY | 2018-11-18 17:17 | XMS REPORT ---
Author Author Catrina Mcnally Organization eClinicalWorks Address Unknown Phone Unavailable Care Team Providers Care Fire Prevention Specialist Name Role Phone Uli Catrina CP Unavailable [...] Start Date End Date Status Dosage Macrobid [facility] 67492694096 100 MG Orally every 12 hrs August 05, 2017 Active 1 capsule with food Triamcinolone Acetonide [facility] 55213865206 0.1 % Externally Twice a day Active 1 application to affected area Hydroxychloroquine Sulfate ND 37128982690 200 MG Orally Once a day Active 2 tabs Morphine Sulfate [facility] 79068462629 15 MG Orally every 8 hrs prn Active 1 tablet as needed Benlysta [facility] 60532798116 400 MG Intravenous Once every 4 weeks October 09, 2017 September 04, 2018 Active 1000mg Cyclobenzaprine HCl ND 28664109105 10 MG Orally bedtime prn Active 1 tablet as needed Cyclobenzaprine HCl ND 69828660311 10 mg Orally bedtime Active 1 tablet as needed Benlysta [facility] 74282616546 120 MG Intravenous Active as directed Vital Signs Date/Time: Nov 21, 2017 Height 65 in Blood Pressure Diastolic 90 mm Hg Blood Pressure Systolic 142 mm Hg Weight 218 lbs Results No Known Results Summary Purpose eClinicalWorks Submission
--- OUTSIDE RECORDS SUMMARY | 2018-11-18 17:17 | XMS REPORT ---
Author Author Catrina Mcnally Organization eClinicalWorks Address Unknown Phone Unavailable Care Team Providers Care Document Processing Specialist Name Role Phone Bisialfredo Catrina CP Unavailable [...] perforation K25.9 Active Assessment Rash R21 Active Problem Gastritis and duodenitis K29.90 Active [...] Start Date End Date Status Dosage Benlysta [facility] 85077070939 120 MG Intravenous Active as directed Nalfon [facility] 92830627886 400 MG Orally Three times a day Inactive 1 tab(s) with food as needed Gabapentin ND 93122852921 300 MG Orally Three times a day Dec 16, 2017 Active 1 capsule Morphine Sulfate [facility] 88354108796 15 MG Orally every 8 hrs prn Active 1 tablet as needed Nabumetone [facility] 88657681273 750 MG Orally bid Jan 22, 2018 Apr 22, 2018 Active 1 tab(s) with food as needed Triamcinolone Acetonide [facility] 39040735699 0.1 % Externally Twice a day Jan 28, 2018 Active 1 application to affected area Hydroxychloroquine Sulfate [facility] 89379662495 200 MG Orally Once a day Active 2 tabs Cyclobenzaprine HCl [facility] 53370148718 10 mg Orally bedtime Active 1 tablet as needed Vital Signs Date/Time: Jan 28, 2018 Height 65 in Blood Pressure Diastolic 72 mm Hg Blood Pressure Systolic 108 mm Hg Weight 217.2 lbs Results No Known Results Summary Purpose eClinicalWorks Submission
--- OUTSIDE RECORDS SUMMARY | 2018-11-18 17:18 | XMS REPORT ---
Author Author Catrina Mcnally [facility] eClinicalWorks Address Unknown Phone Unavailable Care Team Providers Care Financial Accountant Name Role Phone Catrina Mcnally CP Unavailable Encounters Encounter Location Date Follow up [facility]ology [facility] August 02, 2014 [facility] Feb 23, 2015 due OV [facility] Feb 23, 2015 [facility] Feb 08, 2015 disability forms [facility] Mar 03, 2015 symptoms [facility] September 21, 2014 [facility] May 18, 2015 Follow up Rheumatology Clinic September 21, 2014 Follow up [facility]ology Clinic Mar 09, 2015 Unknown [facility] September 14, 2014 Cipro [facility] Mar 13, 2015 Call abx for UTI [facility] September 15, 2014 pain/tramadol [facility] Oct 26, 2015 Unknown [facility] August 11, 2014 labs by PA [facility] August 28, 2014 R/s Infusion [facility] May 31, 2015 PA review labs [facility] August 06, 2014 Lupus inj [facility] June 12, 2015 lab results [facility] August 08, 2014 [...] 2014 [facility] Oct 27, 2014 Tramadol/Flexeril/Plaquenil/Cream refill req. - awaiting signature [facility] Nov 20, 2015 Sleeping Aid [facility] June 09, 2014 pain shoulder/depo shot [facility] Oct 30, 2015 resent imuran Rx [facility] August 02, [...] ICD-9 Code Onset Dates Condition Status Problem Systemic lupus erythematosus 710.0 Active Problem Pain in joint, multiple sites 719.49 Active Problem High risk medication use Z79.899 Active Assessment Systemic lupus erythematosus 710.0 Active Medications Medication Code System Code Instructions Start Date End Date Status D[facility] [address]-82 200 MG Orally Once a day Dec 20, 2015 Active 2 tablets with food or milk [facility] [address]-32 50 MG Orally Three times a day Dec 20, 2015 Active 1 tab(s) as needed Cyclobenzaprine HCl [facility] [id number] 10 Orally Once a day Dec 20, 2015 Active TAKE 1 TABLET at bedtime Triamcinolone Acetonide [facility] [address]-59 0.1 % Externally Twice a day October 12, 2013 Active 1 application to affected area Social History Social History Element Qualifiers Date Reported IV Drug abuse No. Oct 30, 2015 Smoking status: Yes. Oct 30, 2015 alcohol No. Oct 30, 2015 Summary Purpose eClinicalWorks Submission
--- OUTSIDE RECORDS SUMMARY | 2018-11-18 17:18 | XMS REPORT ---
Author Author Catrina Mcnally [facility] eClinicalWorks Address Unknown Phone Unavailable Care Team Providers Care Pulp Operator Name Role Phone Catrina Mcnally Unavailable [...] Clinic August 02, 2014 Unknown Rheumatology Clinic Feb 02, 2016 Follow up [facility]umatology Clinic Dec 07, 2015 [facility] Feb 21, 2016 Pain contract [facility]ology [facility] Dec 21, 2014 [...] Problem High risk medication use Z79.899 Active Social History Social History Element Qualifiers Date Reported IV Drug abuse No. Dec 07, 2015 Smoking status: Yes. Dec 07, 2015 alcohol No. Dec 07, 2015 Summary Purpose eClinicalWorks Submission
--- OUTSIDE RECORDS SUMMARY | 2018-11-18 17:18 | XMS REPORT ---
Author Author [facility] Address Unknown Phone Unavailable Care Team Providers Care Sand Mixer Machine Name Role Phone UNKNOWN, REFFERING PP Unavailable Problems This patient has no known problems. Allergies, Adverse Reactions, Alerts This patient has no known allergies or adverse reactions. Medications This patient has no known medications. Encounters Start Date/Time End Date/Time Encounter Type Admission Type Attending Clinicians Care Facility Care Department Encounter ID 2016-10-31 14:07:00 2016-10-31 14:07:00 Outpatient C [facility] [id number] 2016-10-10 12:53:00 2016-10-10 12:53:00 Outpatient C [facility] [id number]
--- OUTSIDE RECORDS SUMMARY | 2018-11-18 17:18 | XMS REPORT ---
Author Author Catrina Mcnally [facility] eClinicalWorks Address Unknown Phone Unavailable Care Team Providers Care Fashion Model Name Role Phone Catrina Mcnally Unavailable Encounters [...] Follow up Rheumatology Clinic Dec 07, 2015 Pain contract Rheumatology Clinic Dec 21, 2014 [...]
--- OUTSIDE RECORDS SUMMARY | 2018-11-18 17:18 | XMS REPORT ---
Author Author Catrina Mcnally [facility] eClinicalWorks Address Unknown Phone Unavailable Care Team Providers Care Lead Medical Technologist Name Role Phone Catrina Mcnally Unavailable Encounters [...] 09, 2015 alcohol No. Mar 09, 2015 Summary Purpose eClinicalWorks Submission
--- OUTSIDE RECORDS SUMMARY | 2018-11-18 17:18 | XMS REPORT ---
Author Author Catrina Mcnally Organization eClinicalWorks Address Unknown Phone Unavailable Care Team Providers Care Centrifugal Station Operator Name Role Phone Catrina Mcnally CP [...] Date End Date Status Dosage Tramadol HCl [facility] [address]-99 50 MG Orally Three times a day Oct 26, 2015 Oct 31, 2015 Active 1 tablet Social History Social History Element Qualifiers Date Reported IV Drug abuse No. Mar 09, 2015 Smoking status: Yes. Mar 09, 2015 alcohol No. Mar 09, 2015 Summary Purpose eClinicalWorks Submission
--- OUTSIDE RECORDS SUMMARY | 2018-11-18 17:18 | XMS REPORT ---
Author Author Catrina Mcnally Organization eClinicalWorks Address Unknown Phone Unavailable Care Team Providers Care Mounting Inspector Name Role Phone Catrina Mcnally CP Unavailable [...]
--- OUTSIDE RECORDS SUMMARY | 2018-11-18 17:18 | XMS REPORT ---
Author Author Catrina Mcnally Organization eClinicalWorks Address Unknown Phone Unavailable Care Team Providers Care Concert Manager Name Role Phone Catrina Mcnally CP [...] 2015 symptoms [facility] September 21, 2014 [facility] May 18, 2015 [...] imuran Rx Rheumatology Clinic August 02, 2014 Follow up Rheumatology Clinic Dec 07, 2015 [...] in systemic lupus erythematosus M32.19 Active Assessment High risk medication use Z79.899 Active Assessment Left shoulder pain M25.512 Active Assessment Counseling NOS Z71.9 Active Medications Medication Code System Code Instructions Start Date End Date Status Dosage Plaquenil [facility] [address]-96 200 MG Orally Once a day Dec 20, 2015 Active 2 tablets with food or milk Triamcinolone Acetonide [facility] [address]-07 0.1 % Externally Twice a day October 12, 2013 Active 1 application to affected area Cyclobenzaprine HCl [facility] 10279119215 10 Orally Once a day Dec 20, 2015 Active TAKE 1 TABLET at bedtime Tramadol HCl [facility] [address]-30 50 MG Orally Three times a day Dec 20, 2015 Active 1 tab(s) as needed HydrOXYzine HCl [facility] [address]-13 25 MG Orally at bedtime for itching October 12, 2013 Active 1/2 tablet [facility] [address]-46 120 MG Intravenous Active as directed Social History Social History Element Qualifiers Date Reported IV Drug abuse No. Dec 07, 2015 Smoking status: Yes. Dec 07, 2015 alcohol No. Dec 07, 2015 Vital Signs Date/Time: Dec 07, 2015 Height 65 in Blood Pressure Diastolic 76 mm Hg Blood Pressure Systolic 115 mm Hg Weight 206.8 lbs Summary Purpose eClinicalWorks Submission
--- OUTSIDE RECORDS SUMMARY | 2018-11-18 17:18 | XMS REPORT ---
Author Author Catrina Mcnally [facility] eClinicalWorks Address Unknown Phone Unavailable Care Team Providers Care Alternative Dispute Resolution Mediator Name Role Phone Catrina Mcnally Unavailable Encounters [...]
--- OUTSIDE RECORDS SUMMARY | 2018-11-18 17:18 | XMS REPORT ---
Author Author Catrina Mcnally [facility] eClinicalWorks Address Unknown Phone Unavailable Care Team Providers Care Vocational Rehabilitation Supervisor Name Role Phone Catrina Mcnally Unavailable Encounters [...] No. Mar 09, 2015 Vital Signs Date/Time: May 18, 2015 Height 65 in Blood Pressure Diastolic 84 mm Hg Blood Pressure Systolic 122 mm Hg Weight 207 lbs Summary Purpose eClinicalWorks Submission
--- OUTSIDE RECORDS SUMMARY | 2018-11-18 17:18 | XMS REPORT ---
Author Author Catrina Mcnally [facility] eClinicalWorks Address Unknown Phone Unavailable Care Team Providers Care Otr Owner Operator Truck Driver Name Role Phone Catrina Mcnally Unavailable Encounters [...] Instructions Start Date End Date Status Dosage Cipro [facility] [address]-42 500 MG Orally Twice a day Mar 13, 2015 Mar 18, 2015 Active 1 tablet Social History Social History Element Qualifiers Date Reported IV Drug abuse No. Mar 09, 2015 Smoking status: Yes. Mar 09, 2015 alcohol No. Mar 09, 2015 Summary Purpose eClinicalWorks Submission
--- OUTSIDE RECORDS SUMMARY | 2018-11-18 17:18 | XMS REPORT ---
Author Author Catrina Mcnally Organization eClinicalWorks Address Unknown Phone Unavailable Care Team Providers Care Commercial Lines Assistant Name Role Phone Catrina Mcnally Unavailable [...]
--- OUTSIDE RECORDS SUMMARY | 2018-11-18 17:18 | XMS REPORT ---
Author Author Catrina Mcnally Organization eClinicalWorks Address Unknown Phone Unavailable Care Team Providers Care Formulator Compounder Name Role Phone Catrina Mcnally CP Unavailable [...] Date End Date Status Dosage Tramadol HCl [facility] [address]-07 50 MG Orally Three times a day Oct 26, 2015 Oct 31, 2015 Active 1 tablet Cyclobenzaprine HCl [facility] 91188126947 10 Active TAKE 1 TABLET BY MOUTH AT BEDTIME Triamcinolone Acetonide [facility] [address]-22 0.1 % Externally Twice a day October 12, 2013 Active 1 application to affected area HydrOXYzine HCl [facility] [address]-96 25 MG Orally at bedtime for itching October 12, 2013 Active 1/2 tablet [facility] [address]-31 120 MG Intravenous Active as directed Social History Social History Element Qualifiers Date Reported IV Drug abuse No. Oct 30, 2015 Smoking status: Yes. Oct 30, 2015 alcohol No. Oct 30, 2015 Vital Signs Date/Time: Oct 30, 2015 Height 65 in Blood Pressure Diastolic 82 mm Hg Blood Pressure Systolic 125 mm Hg Weight 206.4 lbs Summary Purpose eClinicalWorks Submission
[2018-11-18] MEDS ORDERED: SODIUM CHLORIDE 0.9% 1000ML 1,000 ML IV STA (17:43)
[2018-11-18] MEDS ORDERED: ACETAMINOPHEN 1000 MG/100 ML IV NR (17:45)
[2018-11-18 18:01] LABS: BASOPHILS % 0.2 % (0.0-1.0); EOSINOPHILS # (AUTO) 0.1 (0.0-0.4); EOSINOPHILS % 1.8 % (0.0-6.0); HEMATOCRIT 33.3 % (34.2-44.1); HEMOGLOBIN 10.9 g/dL (12.0-16.0); LYMPHOCYTES # (AUTO) 1.2 (1.0-3.2); LYMPHOCYTES % 21.9 % (18.0-39.1); MEAN CORPUSCULAR HEMOGLOBIN 28.8 pg (28-32); MEAN CORPUSCULAR HGB CONC 32.7 g/dL (31-35); MEAN CORPUSCULAR VOLUME 88.1 fL (81-99); MONOCYTES # (AUTO) 0.5 (0.2-0.8); MONOCYTES % 8.3 % (4.4-11.3); NEUTROPHILS # (AUTO) 3.7 (2.1-6.9); NEUTROPHILS % 67.4 % (38.7-80.0); PLATELET COUNT 174 x10e3/uL (140-360); RED BLOOD COUNT 3.78 x10e6/uL (3.6-5.1); RED CELL DISTRIBUTION WIDTH 14.7 % (11.7-14.4)
[2018-11-18 18:25] LABS: ALANINE AMINOTRANSFERASE 26 IU/L (0-55); ALBUMIN 3.4 g/dL (3.5-5.0); ALKALINE PHOSPHATASE 77 IU/L (40-150); AMYLASE 40 U/L (25-125); ANION GAP 12.7 mmol/L (8-16); BLOOD UREA NITROGEN 14 mg/dL (7-26); BUN/CREATININE RATIO 18 (6-25); CALCIUM 9.3 mg/dL (8.4-10.2); CARBON DIOXIDE 26 mmol/L (22-29); CHLORIDE 103 mmol/L (98-107); CREATINE KINASE 21 IU/L (29-168); EST GLOMERULAR FILTRATION RATE > 60 ML/MIN (60-); GLUCOSE 141 mg/dL (74-118); LIPASE 15 U/L (8-78); POTASSIUM 3.7 mmol/L (3.5-5.1); SODIUM 138 mmol/L (136-145)
[2018-11-18 18:26] LABS: BILIRUBIN,URINE NEGATIVE (NEGATIVE); CLARITY,URINE SL CLOUDY (CLEAR); COLOR,URINE YELLOW (YELLOW); KETONES,URINE NEGATIVE (NEGATIVE); LEUKOCYTE ESTERASE ,URINE NEGATIVE (NEGATIVE); NITRITE,URINE NEGATIVE (NEGATIVE); PROTEIN,URINE DIPSTICK NEGATIVE (NEGATIVE); URINE UROBILINOGEN 1 mg/dL (0.2 - 1)
--- NOTE | 2018-11-18 18:27 | Diagnostic Imaging Report ---
EXAM: CT Abdomen and Pelvis WITHOUT contrast INDICATION: Flank pain. Right-sided. Blood in urine. Urinary tract infection COMPARISON: None. TECHNIQUE: Abdomen and pelvis were scanned utilizing a multidetector helical scanner from the lung base to the pubic symphysis without administration of IV contrast. Absence of intravenous contrast decreases sensitivity for detection of focal lesions and vascular pathology. Coronal and sagittal reformations were obtained. Routine protocol was performed. IV CONTRAST: None ORAL CONTRAST: Water COMPLICATIONS: None RADIATION DOSE: Total DLP: 867.99 mGy*cm Estimated effective dose: (DLP x 0.015 x size factor) mSv CTDIvol has been reviewed. It is below the limits set by the Radiation Protocol Committee (RPC). Dose modulation, iterative reconstruction, and/or weight based adjustment of the mA/kV was utilized to reduce the radiation dose to as low as reasonably achievable. FINDINGS: LINES and TUBES: None. LOWER THORAX: Unremarkable HEPATOBILIARY: No focal hepatic lesions. No biliary ductal dilation. GALLBLADDER: No radio-opaque stones or sludge. No wall thickening. SPLEEN: No splenomegaly. Small splenule PANCREAS: No focal masses or ductal dilatation. ADRENALS: No adrenal nodules KIDNEYS/URETERS: No hydronephrosis. No cystic or solid mass lesions. Several punctate nonobstructing left renal stones. No perinephric fat stranding. No right renal stone is seen. No urinary bladder stone is seen. GI TRACT: No abnormal distention, wall thickening, or evidence of bowel obstruction. Appendix is normal. PELVIC ORGANS/BLADDER: Unremarkable. LYMPH NODES: No lymphadenopathy. VESSELS: Unremarkable. PERITONEUM / RETROPERITONEUM: No free air or fluid. BONES: Unremarkable. SOFT TISSUES: Unremarkable. IMPRESSION: Several punctate nonobstructing left renal stones. No perinephric fat stranding. No right renal stone is seen. No urinary bladder stone is seen. No hydronephrosis. Signed by: Dr. Marcelo Bess M.D. on 11/18/2018 6:23 PM
--- NOTE | 2018-11-18 18:38 | Diagnostic Imaging Report ---
EXAMINATION: CHEST SINGLE (PORTABLE) INDICATION: Fever ^FEVER ^[id number] ^[id number] COMPARISON: None FINDINGS: TUBES and LINES: None. LUNGS: Lungs are well inflated. Perihilar peribronchial hazy opacity could be due to bronchitis. There is no evidence of pneumonia or pulmonary edema. PLEURA: No pleural effusion or pneumothorax. HEART AND MEDIASTINUM: The cardiomediastinal silhouette is unremarkable. BONES AND SOFT TISSUES: No acute osseous lesion. Soft tissues are unremarkable. UPPER ABDOMEN: No free air under the diaphragm. IMPRESSION: Perihilar peribronchial hazy opacity could be due to bronchitis. Signed by: Dr. Marcelo Bess M.D. on 11/18/2018 6:35 PM
[2018-11-18 18:40] LABS: BACTERIA,URINE MANY /HPF; EPITHELIAL CELLS,URINE MANY /LPF; TRANSITIONAL EPI CELLS,URINE MODERATE; WBC,URINE (MAN) 0-5 /HPF (0-5)
[2018-11-18] MEDS ORDERED: SODIUM CHLORIDE 0.9% 1000ML 1,000 ML ONE (21:05)
[2018-11-18] MEDS ORDERED: KETOROLAC TROMETHAMINE 30 MG/ML VIAL IV NR (21:23)
[2018-11-18] MEDS ORDERED: CIPROFLOXACIN 400 MG/D5W 200ML 200 ML IV NR (21:25)
[2018-11-18] MEDS ORDERED: MORPHINE SULFATE INJ 4 MG/ML INJ 1ML IV PRN (21:30)
[2018-11-18] MEDS ORDERED: CIPROFLOXACIN 400 MG/D5W 200ML 200 ML IV ONE (21:32)
[2018-11-18] MEDS ORDERED: MORPHINE SULFATE INJ 4 MG/ML INJ 1ML ONE (21:32)
[2018-11-18 21:39] LABS: INR 0.95; PROTHROMBIN TIME 13.2 seconds (11.9-14.5)
[2018-11-18 21:40] LABS: PARTIAL THROMBOPLASTIN TIME 36.3 seconds (23.8-35.5)
== END 2018-11-18 22:47 | disposition home or self-care (01) ==
LOC: ER 17:10
DX: N30.00 Acute cystitis without hematuria (principal); N20.0 Calculus of kidney; R50.9 Fever, unspecified
CPT/HCPCS: 36415; 71045; 74176; 80053; 81001; 82150; 82550; 82553; 83605; 83690; 84484; 85025; 85610; 85730; 87040; 87086; 87186; 99283; J0744; J1885; J2270; J7030